=== PATIENT | male | born 1940 | race Caucasian/White ===

== ENCOUNTER 2022-10-27 17:03 | Inpatient (IN) | payer MEDICARE, SELFPAY ==
--- NOTE | ~2022-10-27 | XR_ITS ---
EXAMINATION: XR CHEST CLINICAL INFORMATION: Shortness of breath COMPARISON: None TECHNIQUE: Frontal view of the chest was obtained. FINDINGS: No significant abnormality is noted involving the heart, lungs, mediastinum, bony thorax or soft tissues. XR/XR chest 1V IMPRESSION: Unremarkable examination.
--- NOTE | ~2022-10-27 | US_ITS ---
EXAMINATION: US VENOUS ULTRASOUND WITH DOPPLER LOWER EXTREMITY, BILATERAL CLINICAL INFORMATION: Bilateral pulmonary embolism COMPARISON: None TECHNIQUE: Ultrasound of the deep veins is performed from the hip to the calf with compression sonography and color and pulse Doppler assessment. Spectral analysis with color-flow imaging is performed. FINDINGS: RIGHT: There is normal venous compression and respiratory variation and augmented flow. The visualized common femoral vein, superficial femoral vein, profunda femoral vein, popliteal vein, and the trifurcation region shows no evidence of deep venous thrombosis. There is no significant popliteal fossa cyst. LEFT: Positive for thrombus on the left. [place] to be present in the proximal superficial femoral vein to the level of the popliteal and into the anterior branch of the posterior tibial. US/US venous duplex LE BI IMPRESSION: Positive for DVT in the left lower extremity from the proximal superficial femoral vein through the calf. This critical result was discussed with Dr. Camargo at 3:38 PM on 10/28/2022 and it was ascertained that the content and urgency of the report was understood at the time of direct communication.
--- NOTE | ~2022-10-27 | CT_ITS ---
EXAMINATION: CT ANGIOGRAM OF THE CHEST WITH AND WITHOUT CONTRAST (CT PULMONARY ANGIOGRAM FOR PE) CLINICAL INFORMATION: Reason for Exam tachycardic, hypoxic, EKG PE pattern COMPARISON: None TECHNIQUE: Prior to contrast administration, noncontrast localization images were obtained. Subsequently, multidetector volumetric imaging was performed from the thoracic inlet to below the diaphragms following the administration of 65 mL Omnipaque 350 intravenous contrast. No contrast reaction reported Sagittal, coronal, and MIP oblique sagittal reformatted images were obtained on the CT workstation, uploaded to PACS, and reviewed. This CT examination was performed using dose optimization techniques as appropriate, variously including the following: *Automated exposure control *Adjustment of mA and/or kV according to patient size (this includes techniques or standardized protocols for targeted exams where dose is matched to indication/reason for exam; i.e. extremities or head) *Use of iterative reconstruction technique Total exam dose-length product 250 mGy-cm FINDINGS: QUALITY OF STUDY/CONTRAST BOLUS: Satisfactory. PULMONARY ARTERIES: There are high-grade pulmonary artery embolism with clots identified in maintained and secondary pulmonary arteries of the left upper lobe and lower lobe and the right lower lobe and upper lobe and upper lobe, without evidence of saddle pulmonary emboli. THORACIC AORTA: No aneurysm or dissection. LUNG: No focal consolidation, nodules or masses. PLEURA: No pleural effusion or pneumothorax. MEDIASTINUM: There is large hiatal hernia. No evidence of septal bowing or right heart strain. CORONARY ARTERY CALCIFICATION: None visualized on this study. CHEST WALL/AXILLA: No axillary or internal mammary lymphadenopathy. OSSEOUS STRUCTURES: No acute or suspicious osseous abnormality. UPPER ABDOMEN: Partially visualized upper abdomen revealed exophytic cyst No reflux of contrast into the hepatic veins to suggest elevated right heart pressures. CT/CT angio chest PE protocol IMPRESSION: Bilateral high-grade pulmonary artery embolism VTE: positive This critical result was discussed with Peggy Mclain on 10/27/2022 7:01 PM, and it was ascertained that the content and urgency of the report was understood at the time of direct communication.
[2022-10-27 17:07] VITALS: BP 191/92; PULSE 127; RESP 26; O2SAT 90; BMI 27.4
--- NOTE | 2022-10-27 17:07 | ED_ITS ---
HPI - General Adult General Chief complaint: Dyspnea <NICOLE Rowe - Last Filed: 10/27/22 17:10> Stated complaint: heart racing/ sob <NICOLE Rowe - Last Filed: 10/27/22 17:10> Time Seen by Provider: 10/27/22 17:12 <NICOLE Rowe - Last Filed: 10/27/22 17:10> Related Data Home medications: Home Medications Medication Instructions Recorded Confirmed multivitamin 1 tab PO DAILY 10/27/22 10/27/22 omeprazole magnesium 20 mg 20 mg PO DAILY 10/27/22 10/27/22 tablet,delayed release (Prilosec OTC) <NICOLE Rowe - Last Filed: 10/27/22 17:10> Allergies/adverse reactions: Allergies Allergy/AdvReac Type Severity Reaction Status Date / Time No Known Allergies Allergy Verified 10/27/22 17:07 <NICOLE Rowe - Last Filed: 10/27/22 17:10> [facility] [place] Social History Social History: Social History Smoked in Last 30 Days: No Advance Directives: No Advance Directives Information Provided: Yes <NICOLE Rowe - Last Filed: 10/27/22 17:10> Physical Exam ED Vital Signs: Vital Signs - 24 hr 10/27/22 17:07 10/27/22 18:11 10/27/22 18:13 Pulse Rate 127 H 115 H Respiratory Rate 26 H 20 Blood Pressure 191/92 H 160/83 H Pulse Oximetry 90 L 93 Oxygen Delivery Method Room Air Room Air BMI result Body Mass Index 27.4 <NICOLE Rowe - Last Filed: 10/27/22 17:10> Vital Signs - 24 hr 10/27/22 17:07 10/27/22 18:11 10/27/22 18:13 Pulse Rate 127 H 115 H Respiratory Rate 26 H 20 Blood Pressure 191/92 H 160/83 H Pulse Oximetry 90 L 93 Oxygen Delivery Method Room Air Room Air BMI result Body Mass Index 27.4 <Peggy Mclain MD - Last Filed: 10/27/22 19:27> Course Course Course Narrative: RME--82 yo M with no sig PMHx c/o SOB worse on exertion and palpitations since 10AM. Denies CP, dizziness, N/V Patient tachycardic to 125 & hypoxic 90% on RA after ambulating into triage EKG, labs, CXR, COVID/flu/RSV ordered. Patient will be brought back to main ED <NICOLE Rowe - Last Filed: 10/27/22 17:10> Medications Administered Discontinued Medications Generic Name Dose Route Start Last Admin Trade Name Freq PRN Reason Stop Dose Admin Iohexol 100 ml 10/27/22 18:46 10/27/22 18:47 Iohexol 350 Mg/Ml 100 Ml Infus..Btl IV 10/27/22 18:47 65 ml ONCE ONE Administration <NICOLE Rowe - Last Filed: 10/27/22 17:10> Medications Administered Discontinued Medications Generic Name Dose Route Start Last Admin Trade Name Freq PRN Reason Stop Dose Admin Iohexol 100 ml 10/27/22 18:46 10/27/22 18:47 Iohexol 350 Mg/Ml 100 Ml Infus..Btl IV 10/27/22 18:47 65 ml ONCE ONE Administration <Peggy Mclain MD - Last Filed: 10/27/22 19:27> Medical Decision Making Medical Decision Making MDM Narrative: -patient presented hypoxic, tachycardic, EKG interpreted by me shows sinus tachycardia, heart rate 117, [id number] pattern consistent with pulmonary embolism. Patient's labs are not back yet, I requested to have the CTA done without having labs. -I was present when the patient's CTA of the lungs was done. I saw multiple pulmonary embolisms bilaterally. The radiology report is not back yet. I am starting the patient on Lovenox 1 milligram/kilogram. Also, patient has a left renal cyst, unsure if this could be a primary tumor, as mentioned above the report is pending. Also, patient has classic symptoms of pulmonary embolism such as tachycardia, dizziness and hypoxia -19:04, I spoke with our radiologist on-call, patient does have bilateral PEs, no significant right ventricular strain -patient has an elevated troponin, EKG does not show any ST segment depressions or elevations, ACS not suspected. Elevation likely secondary to the PEs -patient's oxygen saturation drops to 88% on room air with minimal exertion, patient being admitted -I discussed the patient with Dr. Haywood from Internal Medicine <Peggy Mclain MD - Last Filed: 10/27/22 19:27> Differential Diagnosis Differential Diagnoses: The differential diagnosis associated with the presentation includes (PE, pneumonia, CHF) <Peggy Mclain MD - Last Filed: 10/27/22 19:27> Admission/Observation Consideration of admission/observation: Escalation of care including admission/observation considered <Peggy Mclain MD - Last Filed: 10/27/22 19:27> Consult Healthcare Provider Management of the patient was discussed with: Hospitalist <Peggy Mclain MD - Last Filed: 10/27/22 19:27> Lab Data MDM Lab Attestation statement: I reviewed the patient's lab results. <Peggy Mclain MD - Last Filed: 10/27/22 19:27> Result Diagrams: 10/27/22 17:20 10/27/22 17:20 <NICOLE Rowe - Last Filed: 10/27/22 17:10> Labs: Lab Results 10/27/22 10/27/22 10/27/22 Range/Units 17:20 17:20 17:20 WBC 12.3 H (4.8-10.8) X10*3/uL RBC 5.75 (4.60-5.80) X10*6/uL Hgb 17.1 (14.0-18.0) g/dl Hct 50.0 (42.0-52.0) % MCV 87.0 (80.0-98.0) fL MCH 29.7 (27.0-33.0) pg MCHC 34.2 (31.0-36.0) g/dl RDW 12.5 (11.0-16.0) % Plt Count 193 (160-400) X10*3/uL MPV 10.0 (9.4-12.4) fL Immature Gran % (Auto) 0.5 H (0.0-0.4) % Neut % (Auto) 65.5 (45-73) % Lymph % (Auto) 22.0 (20-40) % [place] % (Auto) 8.5 (2-11) % Eos % (Auto) 2.8 (0-4) % Baso % (Auto) 0.7 (0-2) % Lymph # (Auto) 2.7 (1.2-4.9) X10*3/uL [place] # (Auto) 1.0 (0.1-1.2) X10*3/uL Eos # (Auto) 0.3 (0.0-0.4) X10*3/uL Baso # (Auto) 0.1 (0.0-0.2) X10*3/uL Abs Immat Gran (auto) 0.06 H (0.00-0.03) X10*3/uL Absolute Neuts (auto) 8.1 (2.0-8.3) x10*3/uL Absolute Nucleated RBC 0.000 (0.0-0.012) X10*3/uL Nucleated RBC % (auto) 0.0 (0.0-0.2) /100WBC D-Dimer High Sensitivty NG/ML Troponin I High Sens 273.9 H* (<3.5-35.0) ng/L B-Natriuretic Peptide 36 (<100) pg/mL Influenza Type A (PCR) (Negative) Influenza Type B (PCR) (Negative) RSV RNA Qual (PCR) (Negative) SARS-CoV-2 RNA (RT-PCR) (Negative) 10/27/22 10/27/22 Range/Units 17:20 17:20 WBC (4.8-10.8) X10*3/uL RBC (4.60-5.80) X10*6/uL Hgb (14.0-18.0) g/dl Hct (42.0-52.0) % MCV (80.0-98.0) fL MCH (27.0-33.0) pg MCHC (31.0-36.0) g/dl RDW (11.0-16.0) % Plt Count (160-400) X10*3/uL MPV (9.4-12.4) fL Immature Gran % (Auto) (0.0-0.4) % Neut % (Auto) (45-73) % Lymph % (Auto) (20-40) % [place] % (Auto) (2-11) % Eos % (Auto) (0-4) % Baso % (Auto) (0-2) % Lymph # (Auto) (1.2-4.9) X10*3/uL [place] # (Auto) (0.1-1.2) X10*3/uL Eos # (Auto) (0.0-0.4) X10*3/uL Baso # (Auto) (0.0-0.2) X10*3/uL Abs Immat Gran (auto) (0.00-0.03) X10*3/uL Absolute Neuts (auto) (2.0-8.3) x10*3/uL Absolute Nucleated RBC (0.0-0.012) X10*3/uL Nucleated RBC % (auto) (0.0-0.2) /100WBC D-Dimer High Sensitivty 3022 NG/ML Troponin I High Sens (<3.5-35.0) ng/L B-Natriuretic Peptide (<100) pg/mL Influenza Type A (PCR) NEGATIVE (Negative) Influenza Type B (PCR) NEGATIVE (Negative) RSV RNA Qual (PCR) NEGATIVE (Negative) SARS-CoV-2 RNA (RT-PCR) NEGATIVE (Negative) <NICOLE Rowe - Last Filed: 10/27/22 17:10> Lab Results 10/27/22 10/27/22 10/27/22 Range/Units 17:20 17:20 17:20 WBC 12.3 H (4.8-10.8) X10*3/uL RBC 5.75 (4.60-5.80) X10*6/uL Hgb 17.1 (14.0-18.0) g/dl Hct 50.0 (42.0-52.0) % MCV 87.0 (80.0-98.0) fL MCH 29.7 (27.0-33.0) pg MCHC 34.2 (31.0-36.0) g/dl RDW 12.5 (11.0-16.0) % Plt Count 193 (160-400) X10*3/uL MPV 10.0 (9.4-12.4) fL Immature Gran % (Auto) 0.5 H (0.0-0.4) % Neut % (Auto) 65.5 (45-73) % Lymph % (Auto) 22.0 (20-40) % [place] % (Auto) 8.5 (2-11) % Eos % (Auto) 2.8 (0-4) % Baso % (Auto) 0.7 (0-2) % Lymph # (Auto) 2.7 (1.2-4.9) X10*3/uL [place] # (Auto) 1.0 (0.1-1.2) X10*3/uL Eos # (Auto) 0.3 (0.0-0.4) X10*3/uL Baso # (Auto) 0.1 (0.0-0.2) X10*3/uL Abs Immat Gran (auto) 0.06 H (0.00-0.03) X10*3/uL Absolute Neuts (auto) 8.1 (2.0-8.3) x10*3/uL Absolute Nucleated RBC 0.000 (0.0-0.012) X10*3/uL Nucleated RBC % (auto) 0.0 (0.0-0.2) /100WBC D-Dimer High Sensitivty NG/ML Troponin I High Sens 273.9 H* (<3.5-35.0) ng/L B-Natriuretic Peptide 36 (<100) pg/mL Influenza Type A (PCR) (Negative) Influenza Type B (PCR) (Negative) RSV RNA Qual (PCR) (Negative) SARS-CoV-2 RNA (RT-PCR) (Negative) 10/27/22 10/27/22 Range/Units 17:20 17:20 WBC (4.8-10.8) X10*3/uL RBC (4.60-5.80) X10*6/uL Hgb (14.0-18.0) g/dl Hct (42.0-52.0) % MCV (80.0-98.0) fL MCH (27.0-33.0) pg MCHC (31.0-36.0) g/dl RDW (11.0-16.0) % Plt Count (160-400) X10*3/uL MPV (9.4-12.4) fL Immature Gran % (Auto) (0.0-0.4) % Neut % (Auto) (45-73) % Lymph % (Auto) (20-40) % [place] % (Auto) (2-11) % Eos % (Auto) (0-4) % Baso % (Auto) (0-2) % Lymph # (Auto) (1.2-4.9) X10*3/uL [place] # (Auto) (0.1-1.2) X10*3/uL Eos # (Auto) (0.0-0.4) X10*3/uL Baso # (Auto) (0.0-0.2) X10*3/uL Abs Immat Gran (auto) (0.00-0.03) X10*3/uL Absolute Neuts (auto) (2.0-8.3) x10*3/uL Absolute Nucleated RBC (0.0-0.012) X10*3/uL Nucleated RBC % (auto) (0.0-0.2) /100WBC D-Dimer High Sensitivty 3022 NG/ML Troponin I High Sens (<3.5-35.0) ng/L B-Natriuretic Peptide (<100) pg/mL Influenza Type A (PCR) NEGATIVE (Negative) Influenza Type B (PCR) NEGATIVE (Negative) RSV RNA Qual (PCR) NEGATIVE (Negative) SARS-CoV-2 RNA (RT-PCR) NEGATIVE (Negative) <Peggy Mclain MD - Last Filed: 10/27/22 19:27> Independent Interpretation I performed an independent interpretation of an: CT Scan (My interpretation of CTA for pulmonary embolism: Positive for PE) <Peggy Mclain MD - Last Filed: 10/27/22 19:27> Radiology Impression Discussion of test interpretation with radiology: I discussed test interpretation with the radiologist <Peggy Mclain MD - Last Filed: 10/27/22 19:27> Radiologist Impression: QUALITY OF STUDY/CONTRAST BOLUS: Satisfactory. PULMONARY ARTERIES: There are high-grade pulmonary artery embolism with clots identified in maintained and secondary pulmonary arteries of the left upper lobe and lower lobe and the right lower lobe and upper lobe and upper lobe, without evidence of saddle pulmonary emboli. THORACIC AORTA: No aneurysm or dissection. LUNG: No focal consolidation, nodules or masses. PLEURA: No pleural effusion or pneumothorax. MEDIASTINUM: There is large hiatal hernia.? No evidence of septal bowing or right heart strain. CORONARY ARTERY CALCIFICATION: None visualized on this study. CHEST WALL/AXILLA: No axillary or internal mammary lymphadenopathy. OSSEOUS STRUCTURES: No acute or suspicious osseous abnormality.? UPPER ABDOMEN: Partially visualized upper abdomen revealed exophytic cyst? No reflux of contrast into the hepatic veins to suggest elevated right heart pressures. CT/CT angio chest PE protocol IMPRESSION: Bilateral high-grade pulmonary artery embolism VTE: positive <Peggy Mclain MD - Last Filed: 10/27/22 19:27> Critical Care Time Critical Care Time Critical Care Time: Yes <Peggy Mclain MD - Last Filed: 10/27/22 19:27> Total Critical Care Time: 60 <Peggy Mclain MD - Last Filed: 10/27/22 19:27> Attestation: I have personally provided critical care time. Time includes review of lab data, radiology results, discussion with consultants, and monitoring for potential decompensation. Intervention performed as documented. <Peggy Mclain MD - Last Filed: 10/27/22 19:27> Discharge Plan Discharge Clinical Impression: Pulmonary embolism <NICOLE Rowe - Last Filed: 10/27/22 17:10> Patient Disposition: Admitted As Inpatient <NICOLE Rowe - Last Filed: 10/27/22 17:10>
--- NOTE | 2022-10-27 17:07 | ECG_ITS ---
Test Reason : CP Blood Pressure : / mmHG Vent. Rate : 117 BPM Atrial Rate : 117 BPM P-R Int : 160 ms QRS Dur : 088 ms QT Int : 306 ms P-R-T Axes : 069 009 003 degrees QTc Int : 426 ms Sinus tachycardia Cannot rule out Inferior infarct , age undetermined Abnormal ECG No previous ECGs available Referred By: Delmi Sapp Electronically Signed By:PAULA OLSON MD
--- NOTE | 2022-10-27 17:20 | ED.GENADULT ---
HPI - General Adult General Chief complaint: Dyspnea Stated complaint: heart racing/ sob Time Seen by Provider: 10/27/22 17:12 Source: patient Mode of arrival: ambulatory Limitations: no limitations History of Present Illness HPI narrative: Patient comes to the emergency room complaining of palpitations and shortness of breath that started suddenly 5 hours ago. Patient states he has no cardiac or pulmonary history. Patient states Related Data Home Medications Medication Instructions Recorded Confirmed multivitamin 1 tab PO DAILY 10/27/22 10/27/22 omeprazole magnesium 20 mg 20 mg PO DAILY 10/27/22 10/27/22 tablet,delayed release (Prilosec OTC) Allergies Allergy/AdvReac Type Severity Reaction Status Date / Time No Known Allergies Allergy Verified 10/27/22 17:07 [facility] Past Medical History Medical History GERD (gastroesophageal reflux disease) Social History Social History Smoked in Last 30 Days: No Advance Directives: No Advance Directives Information Provided: Yes Physical Exam ED Vital Signs: Vital Signs - 24 hr 10/27/22 17:07 10/27/22 18:11 10/27/22 18:13 Pulse Rate 127 H 115 H Respiratory Rate 26 H 20 Blood Pressure 191/92 H 160/83 H Pulse Oximetry 90 L 93 Oxygen Delivery Method Room Air Room Air BMI result Body Mass Index 27.4 Medications Administered Discontinued Medications Generic Name Dose Route Start Last Admin Trade Name Freq PRN Reason Stop Dose Admin Iohexol 100 ml 10/27/22 18:46 10/27/22 18:47 Iohexol 350 Mg/Ml 100 Ml Infus..Btl IV 10/27/22 18:47 65 ml ONCE ONE Administration Medical Decision Making Lab Data 10/27/22 17:20 10/27/22 17:20 Labs: Lab Results 10/27/22 10/27/22 10/27/22 Range/Units 17:20 17:20 17:20 WBC 12.3 H (4.8-10.8) X10*3/uL RBC 5.75 (4.60-5.80) X10*6/uL Hgb 17.1 (14.0-18.0) g/dl Hct 50.0 (42.0-52.0) % MCV 87.0 (80.0-98.0) fL MCH 29.7 (27.0-33.0) pg MCHC 34.2 (31.0-36.0) g/dl RDW 12.5 (11.0-16.0) % Plt Count 193 (160-400) X10*3/uL MPV 10.0 (9.4-12.4) fL Immature Gran % (Auto) 0.5 H (0.0-0.4) % Neut % (Auto) 65.5 (45-73) % Lymph % (Auto) 22.0 (20-40) % [place] % (Auto) 8.5 (2-11) % Eos % (Auto) 2.8 (0-4) % Baso % (Auto) 0.7 (0-2) % Lymph # (Auto) 2.7 (1.2-4.9) X10*3/uL [place] # (Auto) 1.0 (0.1-1.2) X10*3/uL Eos # (Auto) 0.3 (0.0-0.4) X10*3/uL Baso # (Auto) 0.1 (0.0-0.2) X10*3/uL Abs Immat Gran (auto) 0.06 H (0.00-0.03) X10*3/uL Absolute Neuts (auto) 8.1 (2.0-8.3) x10*3/uL Absolute Nucleated RBC 0.000 (0.0-0.012) X10*3/uL Nucleated RBC % (auto) 0.0 (0.0-0.2) /100WBC D-Dimer High Sensitivty NG/ML Troponin I High Sens 273.9 H* (<3.5-35.0) ng/L B-Natriuretic Peptide 36 (<100) pg/mL Influenza Type A (PCR) (Negative) Influenza Type B (PCR) (Negative) RSV RNA Qual (PCR) (Negative) SARS-CoV-2 RNA (RT-PCR) (Negative) 10/27/22 10/27/22 Range/Units 17:20 17:20 WBC (4.8-10.8) X10*3/uL RBC (4.60-5.80) X10*6/uL Hgb (14.0-18.0) g/dl Hct (42.0-52.0) % MCV (80.0-98.0) fL MCH (27.0-33.0) pg MCHC (31.0-36.0) g/dl RDW (11.0-16.0) % Plt Count (160-400) X10*3/uL MPV (9.4-12.4) fL Immature Gran % (Auto) (0.0-0.4) % Neut % (Auto) (45-73) % Lymph % (Auto) (20-40) % [place] % (Auto) (2-11) % Eos % (Auto) (0-4) % Baso % (Auto) (0-2) % Lymph # (Auto) (1.2-4.9) X10*3/uL [place] # (Auto) (0.1-1.2) X10*3/uL Eos # (Auto) (0.0-0.4) X10*3/uL Baso # (Auto) (0.0-0.2) X10*3/uL Abs Immat Gran (auto) (0.00-0.03) X10*3/uL Absolute Neuts (auto) (2.0-8.3) x10*3/uL Absolute Nucleated RBC (0.0-0.012) X10*3/uL Nucleated RBC % (auto) (0.0-0.2) /100WBC D-Dimer High Sensitivty 3022 NG/ML Troponin I High Sens (<3.5-35.0) ng/L B-Natriuretic Peptide (<100) pg/mL Influenza Type A (PCR) NEGATIVE (Negative) Influenza Type B (PCR) NEGATIVE (Negative) RSV RNA Qual (PCR) NEGATIVE (Negative) SARS-CoV-2 RNA (RT-PCR) NEGATIVE (Negative) Discharge Plan Discharge Clinical Impression: Pulmonary embolism Patient Disposition: Admitted As Inpatient
[2022-10-27 17:30] LABS: MANUAL DIFF FLAG NO
[2022-10-27 17:32] LABS: Basophils Absolute Auto 0.1 X10*3/uL (0.0-0.2); Basophils Percent Auto 0.7 % (0-2); Eosinophils Absolute Auto 0.3 X10*3/uL (0.0-0.4); Eosinophils Percent Auto 2.8 % (0-4); Hemoglobin 17.1 g/dl (14.0-18.0); Imm Gran Abs Auto 0.06 X10*3/uL (0.00-0.03); Imm Gran Pct Auto 0.5 % (0.0-0.4); Lymphocytes Absolute Auto 2.7 X10*3/uL (1.2-4.9); Mean Corpuscular HGB Conc 34.2 g/dl (31.0-36.0); Mean Corpuscular Hemoglobin 29.7 pg (27.0-33.0); Monocytes Percent Auto 8.5 % (2-11); Neutrophils Absolute Auto 8.1 x10*3/uL (2.0-8.3); Neutrophils Percent Auto 65.5 % (45-73); Platelet Count 193 X10*3/uL (160-400); Red Blood Count 5.75 X10*6/uL (4.60-5.80); Red Cell Distribution Width 12.5 % (11.0-16.0); White Blood Count 12.3 X10*3/uL (4.8-10.8)
[2022-10-27 17:42] LABS: D Dimer High Sensitivity 3022 NG/ML
[2022-10-27 17:50] LABS: B Type Natriuretic Peptide 36 pg/mL (<100)
[2022-10-27 18:04] LABS: Troponin-I High Sensitivity 273.9 ng/L (<3.5-35.0)
[2022-10-27 18:06] LABS: TSH reflex Free T4 4.01 uIU/mL (0.32-4.0)
[2022-10-27 18:11] VITALS: PULSE 115; RESP 20; O2SAT 93
[2022-10-27 18:12] LABS: Influenza A PCR NEGATIVE (Negative); Influenza B PCR NEGATIVE (Negative); Resp Syncy Virus RNA Qual PCR NEGATIVE (Negative); SARS COV2 PCR INHOUSE NEGATIVE (Negative)
[2022-10-27 18:13] VITALS: BP 160/83
--- NOTE | 2022-10-27 18:21 | PC.NURSE ---
Alert and oriented, resp even and unlabored. Shortness of breath since this morning, IV established sinus tach on monitor
[2022-10-27] MEDS: iohexoL 350 MG/ML 100 ML INFUS..BTL IV (18:47)
--- NOTE | 2022-10-27 19:03 | PHA.MEDREC ---
Pharmacy Consult ? Medication Reconciliation Pharmacy has completed the medication reconciliation.
--- NOTE | 2022-10-27 19:08 | PM.IMHP ---
History of Present Illness Date of Service: 10/27/22 Chief Complaint: Dyspnea this is a 82-year-old male with pertinent history of gastroesophageal reflux disease who presents to the emergency department for evaluation of tachypnea and tachycardia. patient states he had sudden onset of dyspnea which he had never experienced before. It was worse with exertion. Also noticed tachycardia. Denies chest discomfort. No history of blood clots in the past. No history of hypercoagulability in family. No recent travels. Patient is ambulatory at baseline. No history of cancer. He denies fever, chills, cough, abdominal pain, changes in urinary or bowel habits. In the emergency department, patient was found to have bilateral pulmonary emboli Review of Systems Constitutional: Constitutional: Reports no additional constitutional complaints Cardiovascular: Cardiovascular: Reports rapid heart rate and Reports dyspnea on exertion Respiratory: Respiratory: Reports dyspnea on exertion Gastrointestinal: Gastrointestinal: Reports no additional gastrointestinal complaints Genitourinary: Genitourinary: Reports no additional male genitourinary complaints [facility]LY [facility] Medical History GERD (gastroesophageal reflux disease) Functional capacity: independent ambulation Pertinent family history: not significant due to age. No family history of hypercoagulation Social History Smoked in Last 30 Days: No Advance Directives: No Advance Directives Information Provided: Yes Meds Allergies Allergy/AdvReac Type Severity Reaction Status Date / Time No Known Allergies Allergy Verified 10/27/22 17:07 Active Medications: Current Medications Pharmacy Consult (Consult Rx Perform Med Rec) 1 each MISCELLANE ONCE PRN PRN Reason: Consult order Home Medications Medication Instructions Recorded Confirmed Last Taken Type multivitamin 1 tab PO DAILY 10/27/22 10/27/22 10/27/22 History omeprazole magnesium 20 mg 20 mg PO DAILY 10/27/22 10/27/22 10/27/22 History tablet,delayed release (Prilosec OTC) Physical Exam Vital Signs and Narrative: Vital Signs: Last Vital Signs Pulse 115 H 10/27/22 18:11 Resp 20 10/27/22 18:11 BP 160/83 H 10/27/22 18:13 Pulse Ox 93 10/27/22 18:11 O2 Del Method 10/27/22 18:11 BMI result Body Mass Index 27.4 Elderly male lying in bed in no distress Neck supple, no JVD Tachycardic with regular rhythm, S1-S2 heard Regular breath sounds bilaterally, no wheezing or crackles appreciated Abdomen soft nontender, no guarding, no rigidity Patient is awake, alert and oriented to self, place, time and person ; no focal motor deficit Psych: Normal mood No pedal edema Results Labs 10/27/22 17:20 10/27/22 17:20 Labs: Laboratory Results - last 24 hr 10/27/22 10/27/22 10/27/22 17:20 17:20 17:20 MCV 87.0 MCH 29.7 MCHC 34.2 RDW 12.5 Plt Count 193 MPV 10.0 Immature Gran % (Auto) 0.5 H Neut % (Auto) 65.5 Lymph % (Auto) 22.0 [place] % (Auto) 8.5 Eos % (Auto) 2.8 Baso % (Auto) 0.7 Lymph # (Auto) 2.7 [place] # (Auto) 1.0 Eos # (Auto) 0.3 Baso # (Auto) 0.1 Abs Immat Gran (auto) 0.06 H Absolute Neuts (auto) 8.1 Absolute Nucleated RBC 0.000 Nucleated RBC % (auto) 0.0 D-Dimer High Sensitivty Troponin I High Sens 273.9 H* B-Natriuretic Peptide 36 Influenza Type A (PCR) Influenza Type B (PCR) RSV RNA Qual (PCR) SARS-CoV-2 RNA (RT-PCR) 10/27/22 10/27/22 17:20 17:20 MCV MCH MCHC RDW Plt Count MPV Immature Gran % (Auto) Neut % (Auto) Lymph % (Auto) [place] % (Auto) Eos % (Auto) Baso % (Auto) Lymph # (Auto) [place] # (Auto) Eos # (Auto) Baso # (Auto) Abs Immat Gran (auto) Absolute Neuts (auto) Absolute Nucleated RBC Nucleated RBC % (auto) D-Dimer High Sensitivty 3022 Troponin I High Sens B-Natriuretic Peptide Influenza Type A (PCR) NEGATIVE Influenza Type B (PCR) NEGATIVE RSV RNA Qual (PCR) NEGATIVE SARS-CoV-2 RNA (RT-PCR) NEGATIVE Imaging Radiologist's Impressions: Impressions Chest X-Ray 10/27/22 18:15 IMPRESSION: Unremarkable examination. Assessment and Plan (1) Pulmonary embolism: Status: Acute Plan this is a 82-year-old male with pertinent history of gastroesophageal reflux disease who presents to the emergency department for evaluation of tachypnea and tachycardia. #. Acute respiratory distress and ambulatory hypoxemia due to #. Acute submassive PE: Unclear etiology. Initiating therapeutic Lovenox. Transition to p.o. anticoagulants prior to discharge. May benefit from coagulation workup as an outpatient. BMP pending #. Elevated troponin: Type 2 in the setting of increased demand #. reactive leukocytosis #. gastroesophageal reflux disease: On PPI DVT prophylaxis: Therapeutic Lovenox Regular diet Full code Admit as inpatient and will require two night minimum hospital stay for close monitoring of hemodynamics Time Spent With Patient Time: Total time managing care of this patient today ____ minutes. Quality Stroke Does the patient have a stroke diagnosis?: No VTE Prior VTE?: No VTE Risk Level:: Medical - moderate - high VTE Device Contraindication: Treatment Not Indicated VTE Drug Contraindication: N/A - Med Ordered
[2022-10-27 19:55] VITALS: BP 177/93; PULSE 111; RESP 17; TEMP 36.3; O2SAT 94
[2022-10-27 22:45] LABS: Alanine Aminotransferase 19 U/L (0-40); Albumin Level 3.9 g/dL (3.5-5.0); Alkaline Phosphatase 103 U/L (39-117); Anion Gap 13 (12-20); Aspartate Amino Transferase 23 U/L (5-37); Bilirubin Direct < 0.2 mg/dL (0.0-0.5); Bilirubin Total 0.6 mg/dL (0.0-1.0); Blood Urea Nitrogen 18 mg/dL (9-16); Calcium 9.3 mg/dL (8.4-10.2); Carbon Dioxide 25 mmol/L (22-29); Chloride 106 mmol/L (96-108); Creatinine Clr Calc Pharmacy 40.6; Estimated Glomerular Filt Rate 53; Glucose Random 215 mg/dL (60-115); Magnesium 2.2 mg/dL (1.6-2.6); Potassium 4.8 mmol/L (3.3-5.1); Sodium 139 mmol/L (135-145); Total Protein 6.6 g/dL (6.5-8.0)
[2022-10-27 22:53] LABS: Troponin-I High Sensitivity 850.9 ng/L (<3.5-35.0)
--- NOTE | 2022-10-27 22:56 | PC.NURSE ---
lovenox given by prior RN, per [facility] RN is still in chart so unable to amend medication as given, witnessed medication administration at 1915.
[2022-10-27 23:22] LABS: Free T4 (Free Thyroxine) 0.84 ng/dL (0.71-1.85)
[2022-10-27] MEDS: Melatonin 3 MG TABLET 6 MG PO (23:41)
[2022-10-27] MEDS: 0.9 % Sodium Chloride Flush 3 ML SYRINGE IVFLUSH (23:43)
[2022-10-27 23:51] VITALS: BP 189/78; PULSE 102; RESP 17; TEMP 36.9; O2SAT 96
--- NOTE | 2022-10-27 23:53 | PC.NURSE ---
I took ovver care of the pt at 2300. Pt is resting comfortably in bed, requesting something to sleep and an antacid. MD contacted and medications ordered. Pt then stated that he wants to wait to take his maalox until he starts to get pain. At this time, pt has no complaints.
[2022-10-28] MEDS: Enoxaparin Sodium 80 MG/0.8 ML SYRINGE 70 MG SUBCUT ×4 (01:12→21:09)
[2022-10-28 04:35] VITALS: BP 136/62; PULSE 94; RESP 20; TEMP 37; O2SAT 92
[2022-10-28 05:34] LABS: Estimated Average Glucose 154 mg/dL
[2022-10-28] MEDS: Omeprazole 20 MG CAPSULE.DR PO (06:28)
--- NOTE | 2022-10-28 07:00 | CA_ITS ---
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 elevated troponin Study Quality: Fair ECG Rhythm: Sinus Conclusions: - 1. Normal LV systolic function with mild LVH 2. Dilated right ventricle with hypokinesis of the free wall suggestive acute cor pulmonale 3. Upper limits of RV systolic pressure 4. Normal cardiac valvular Doppler 5. No gross pericardial effusion Findings Left Ventricle Normal left ventricular size and systolic function. There is mildly increased left ventricular wall thickness. The visually estimated ejection fraction is between 60-65%. Regional wall motion abnormalities can not be excluded due to suboptimal endocardial definition. Diastolic function is indeterminate on the basis of available data. There is mild septal asymmetric hypertrophy. Right Ventricle Moderately increased right ventricular cavity size. There is moderately decreased right ventricular systolic function. Atria The left atrium is normal in size. Interatrial shunt cannot be excluded. The right atrium was not well visualized. Aortic Valve The aortic valve structure and function is likely normal. There is no aortic valve stenosis. There is no aortic valve regurgitation. Mitral Valve There is mild anterior and posterior mitral leaflet thickening. There is trace mitral valve regurgitation. There is no mitral valve stenosis. Pulmonic Valve The pulmonic valve was not well visualized. Tricuspid Valve Likely normal tricuspid valve structure and function. Normal right atrial pressure. Great Vessels All visible segments of the aorta are normal in size. The pulmonary artery was not well visualized. Venous The inferior vena cava is normal in size and collapses greater than 50% with inspiration. Pericardium/Pleural There is no evidence of pericardial effusion. Prior Study Comparison No prior study available for comparison. Measurements 2D Linear Measurements IVSd: 1.33 0.6-0.9/0.6-1.0 cm LVIDd: 3.50 3.9-5.3/4.2-5.9 cm LVIDd Index: 1.97 2.4-3.2/2.2-3.1 cm/m2 LVIDs: 1.48 2.0-3.6 cm LVPWd: 1.03 0.7-1.1 cm LA Diam: 2.50 2.7-3.8/3.0-4.0 cm LAIDs Index: 1.40 1.5-2.3 cm/m2 LV Mass: 164.69 67-162/88-224 g LV Mass Index: 92.52 43-95/49-115 g/m2 LVOT Diam: 2.00 3.0+(-)1.3 cm Mitral Valve E'Lateral: 4.68 E'Medial: 5.11 Aortic Valve AoV Pk Manuel: 1.08 AoV Mn Manuel: 0.79 AoV VTI: 0.19 AoV Pk Grad: 5.00 Aov Mn Grad: 3.00 SHERYL Cont.VTI: 2.36 LVOT LVOT Pk Manuel: 0.87 LVOT Mn Manuel: 0.64 LVOT VTI: 0.15 LVOT Pk Grad: 3.00 LVOT Mn Grad: 2.00 LVOT Diam: 2.00 LVOT Area: 3.14 Diastolic Function E'Medial: 5.11 E' Laterial: 4.68 Right Ventricle TAPSE (mm): 14.00 TVS' Manuel: 12.00 Tricuspid Valve TR Pk Manuel: 2.97 TR Pk Grad: 35.00 RA Press: 3.00 RVSP: 38.00 Great Vessels Aorta Ao Asc: 3.50 2.1-3.4 cm Updated in Other Vendor System with Status of Final Otilio Sol MD electronically signed on 10/28/2022 3:08:12 PM with status of Final
--- NOTE | 2022-10-28 07:03 | PC.NURSE ---
assumed care of patient, patient resting comfortably in bed, VSS, awaiting inpt bed
[2022-10-28 07:16] LABS: MANUAL DIFF FLAG NO
[2022-10-28 07:25] LABS: Basophils Absolute Auto 0.1 X10*3/uL (0.0-0.2); Eosinophils Absolute Auto 0.6 X10*3/uL (0.0-0.4); Eosinophils Percent Auto 4.3 % (0-4); Hematocrit 49.4 % (42.0-52.0); Hemoglobin 16.9 g/dl (14.0-18.0); Imm Gran Abs Auto 0.06 X10*3/uL (0.00-0.03); Imm Gran Pct Auto 0.5 % (0.0-0.4); Lymphocytes Absolute Auto 4.7 X10*3/uL (1.2-4.9); Lymphocytes Percent Auto 36.5 % (20-40); Mean Corpuscular HGB Conc 34.2 g/dl (31.0-36.0); Mean Corpuscular Hemoglobin 29.5 pg (27.0-33.0); Mean Corpuscular Volume 86.4 fL (80.0-98.0); Monocytes Absolute Auto 1.3 X10*3/uL (0.1-1.2); Monocytes Percent Auto 10.3 % (2-11); Neutrophils Absolute Auto 6.1 x10*3/uL (2.0-8.3); Neutrophils Percent Auto 47.4 % (45-73); Platelet Count 207 X10*3/uL (160-400); Red Blood Count 5.72 X10*6/uL (4.60-5.80); Red Cell Distribution Width 12.7 % (11.0-16.0); White Blood Count 12.8 X10*3/uL (4.8-10.8)
[2022-10-28 07:34] LABS: Anion Gap 14 (12-20); Blood Urea Nitrogen 17 mg/dL (9-16); Calcium 9.3 mg/dL (8.4-10.2); Carbon Dioxide 26 mmol/L (22-29); Chloride 106 mmol/L (96-108); Creatinine Clr Calc Pharmacy 42.6; Estimated Glomerular Filt Rate 56; Glucose Random 153 mg/dL (60-115); Potassium 4.6 mmol/L (3.3-5.1); Sodium 141 mmol/L (135-145)
[2022-10-28] MEDS: Multivitamin TABLET 1 TAB PO (07:51)
[2022-10-28 08:23] VITALS: BP 137/69; PULSE 95; RESP 20; TEMP 36.7; O2SAT 92
--- NOTE | 2022-10-28 09:42 | MHC.CM.PN ---
PT REPORTS HE LIVES ALONE AND IS INDEPENDENT WITH CARE HE DENIES USE OF DME OR HOME SERVICES PT REPORTS HE IS COVID VACCINATED HE REPORTS HE HAS A HCP, HOWEVER IS UNSURE WHERE, HE DECLINES CM OFFER TO ASSIST IN COMPLETION OF A NEW ONE. PT REPORTS HE DOES NOT HAVE A PCP, HE SAYS HE WAS WITH [facility] UNTIL 3-4 YEARS AGO, BUT HAS NOT FOUND A NEW ONE SINCE THE DOCTOR MOVED HIS PRACTICE. HE IS INTERESTED IN SEEING A PROVIDER AT [facility] [place], [place] ON THE [facility] TASK SENT TO CM OFFICE IMM DELIVERED CURRENT DC PLAN IS HOME WITH NO SERVICES PTS BROTHER TO TRANSPORT
--- NOTE | 2022-10-28 11:26 | P.PNIM_ITS ---
Subjective Subjective Date of Service: 10/28/22 Interval History: being followed for bilateral PE patient denies chest pain, denies palpitations, denies prolonged car ride, no recent travel has been ambulatory denies leg trauma and no prior history of DVT. denies chest pain, no prior history of coronary artery disease. Review of Systems Review of Systems: Yes all other systems are reviewed and are negative Physical Exam Vital Signs: Vital Signs: Last Vital Signs Temp 98.1 F 10/28/22 08:23 Pulse 95 10/28/22 08:23 Resp 20 10/28/22 08:23 BP 137/69 10/28/22 08:23 Pulse Ox 92 10/28/22 08:23 O2 Del Method 10/28/22 08:23 BMI result Body Mass Index 27.4 Const: Other: General resting comfortably, in no acute distress. Neck supple, no JVD. CVS regular rate rhythm, Respiratory lungs clear to auscultation, no respiratory distress, no wheeze, no rhonchi. Gastrointestinal abdomen soft, nontender, bowel sounds audible, no guarding , no rigidity. Extremities no edema. Neuro nonfocal , speech clear. Skin no rash Objective Data Active Medications Acetaminophen (Acetaminophen 325 Mg Tablet) 650 mg PO Q6H PRN PRN Reason: Pain, Mild (Pain Scale 1-3) Enoxaparin Sodium (Enoxaparin Sodium 80 Mg/0.8 Ml Syringe) 70 mg 1 mg/kg (70 mg) SUBCUT BID [facility] Last Admin: 10/28/22 07:50 Dose: 70 mg Documented By: LINH Melatonin (Melatonin 3 Mg Tablet) 6 mg PO BEDTIME PRN PRN Reason: Insomnia Last Admin: 10/27/22 23:41 Dose: 6 mg Documented By: BECKY Multivitamins/Vitamin C (Multivitamin Tablet) 1 tab PO DAILY [facility] Last Admin: 10/28/22 07:51 Dose: 1 tab Documented By: LINH Omeprazole (Omeprazole 20 Mg Capsule.) 20 mg PO DAILY@0600 [facility] Last Admin: 10/28/22 06:28 Dose: 20 mg Documented By: BECKY Ondansetron HCl (Ondansetron Hcl 4 Mg/2 Ml Vial) 4 mg IVPUSH Q8H PRN PRN Reason: Nausea and Vomiting Pharmacy Consult (Consult Rx Perform Med Rec) 1 each MISCELLANE ONCE PRN PRN Reason: Consult order Sodium Chloride (0.9 % Sodium Chloride Flush 3 Ml Syringe) 3 ml IVFLUSH QSHIFT [facility] Last Admin: 10/28/22 07:50 Dose: Not Given Documented By: LINH Non-Admin Reason: IV Running Labs 10/28/22 06:55 10/28/22 06:55 Labs: Laboratory Results - last 24 hr 10/27/22 10/27/22 10/27/22 17:20 17:20 17:20 MCV 87.0 MCH 29.7 MCHC 34.2 RDW 12.5 Plt Count 193 MPV 10.0 Immature Gran % (Auto) 0.5 H Neut % (Auto) 65.5 Lymph % (Auto) 22.0 [place] % (Auto) 8.5 Eos % (Auto) 2.8 Baso % (Auto) 0.7 Lymph # (Auto) 2.7 [place] # (Auto) 1.0 Eos # (Auto) 0.3 Baso # (Auto) 0.1 Abs Immat Gran (auto) 0.06 H Absolute Neuts (auto) 8.1 Absolute Nucleated RBC 0.000 Nucleated RBC % (auto) 0.0 D-Dimer High Sensitivty Anion Gap Estim Creat Clear Calc Estimated GFR Random Glucose Estimat Average Glucose Hemoglobin A1c % Calcium Magnesium Total Bilirubin Direct Bilirubin AST ALT Alkaline Phosphatase Troponin I High Sens 273.9 H* B-Natriuretic Peptide 36 Total Protein Albumin TSH Free T4 Influenza Type A (PCR) Influenza Type B (PCR) RSV RNA Qual (PCR) SARS-CoV-2 RNA (RT-PCR) 10/27/22 10/27/22 10/27/22 17:20 17:20 17:20 MCV MCH MCHC RDW Plt Count MPV Immature Gran % (Auto) Neut % (Auto) Lymph % (Auto) [place] % (Auto) Eos % (Auto) Baso % (Auto) Lymph # (Auto) [place] # (Auto) Eos # (Auto) Baso # (Auto) Abs Immat Gran (auto) Absolute Neuts (auto) Absolute Nucleated RBC Nucleated RBC % (auto) D-Dimer High Sensitivty 3022 Anion Gap Estim Creat Clear Calc Estimated GFR Random Glucose Estimat Average Glucose 154 Hemoglobin A1c % 7.0 Calcium Magnesium Total Bilirubin Direct Bilirubin AST ALT Alkaline Phosphatase Troponin I High Sens B-Natriuretic Peptide Total Protein Albumin TSH Free T4 Influenza Type A (PCR) NEGATIVE Influenza Type B (PCR) NEGATIVE RSV RNA Qual (PCR) NEGATIVE SARS-CoV-2 RNA (RT-PCR) NEGATIVE 10/27/22 10/27/22 10/28/22 21:54 21:54 06:55 MCV 86.4 MCH 29.5 MCHC 34.2 RDW 12.7 Plt Count 207 MPV 10.0 Immature Gran % (Auto) 0.5 H Neut % (Auto) 47.4 Lymph % (Auto) 36.5 [place] % (Auto) 10.3 Eos % (Auto) 4.3 H Baso % (Auto) 1.0 Lymph # (Auto) 4.7 [place] # (Auto) 1.3 H Eos # (Auto) 0.6 H Baso # (Auto) 0.1 Abs Immat Gran (auto) 0.06 H Absolute Neuts (auto) 6.1 Absolute Nucleated RBC 0.000 Nucleated RBC % (auto) 0.0 D-Dimer High Sensitivty Anion Gap 13 Estim Creat Clear Calc 40.6 Estimated GFR 53 Random Glucose 215 H Estimat Average Glucose Hemoglobin A1c % Calcium 9.3 Magnesium 2.2 Total Bilirubin 0.6 Direct Bilirubin < 0.2 AST 23 ALT 19 Alkaline Phosphatase 103 Troponin I High Sens 850.9 H* D B-Natriuretic Peptide Total Protein 6.6 Albumin 3.9 TSH 4.01 H Free T4 0.84 Influenza Type A (PCR) Influenza Type B (PCR) RSV RNA Qual (PCR) SARS-CoV-2 RNA (RT-PCR) 10/28/22 06:55 MCV MCH MCHC RDW Plt Count MPV Immature Gran % (Auto) Neut % (Auto) Lymph % (Auto) [place] % (Auto) Eos % (Auto) Baso % (Auto) Lymph # (Auto) [place] # (Auto) Eos # (Auto) Baso # (Auto) Abs Immat Gran (auto) Absolute Neuts (auto) Absolute Nucleated RBC Nucleated RBC % (auto) D-Dimer High Sensitivty Anion Gap 14 Estim Creat Clear Calc 42.6 Estimated GFR 56 Random Glucose 153 H Estimat Average Glucose Hemoglobin A1c % Calcium 9.3 Magnesium Total Bilirubin Direct Bilirubin AST ALT Alkaline Phosphatase Troponin I High Sens B-Natriuretic Peptide Total Protein Albumin TSH Free T4 Influenza Type A (PCR) Influenza Type B (PCR) RSV RNA Qual (PCR) SARS-CoV-2 RNA (RT-PCR) Assessment and Plan (1) Pulmonary embolism: Status: Acute (2) GERD (gastroesophageal reflux disease): Status: Acute (3) Hypoxia: Status: Acute Plan 82-year-old male with pertinent history of gastroesophageal reflux disease presents to the emergency department for evaluation of tachypnea and tachycardia. #.? Acute respiratory distress and ambulatory hypoxemia due to Acute submassive PE: Unclear etiology, no history of recent travel, no leg trauma. continue therapeutic Lovenox per transition to p.o. anticoagulants prior to discharge.? will obtain Doppler study lower extremity, follow echo for right heart strain coagulation workup as an outpatient.? #. Elevated troponin:? Type 2 in the setting of increased demand, EKG showed no ischemic change, echo obtained report pending #. reactive leukocytosis #. gastroesophageal reflux disease:? cont. Prilosec DVT prophylaxis: Therapeutic Lovenox Full code patient will need continued inpatient hospitalization? for treatment and workup for acute PE for close monitoring of hemodynamics Time Spent With Patient Time: Total time managing care of this patient today ____ minutes. Quality Stroke Does the patient have a stroke diagnosis?: No VTE Prior VTE?: No VTE Risk Level:: Medical - moderate - high VTE Device Contraindication: Treatment Not Indicated VTE Drug Contraindication: N/A - Med Ordered
[2022-10-28] MEDS: 0.9 % Sodium Chloride Flush 3 ML SYRINGE IVFLUSH (12:51)
[2022-10-28 15:04] VITALS: BP 126/78; PULSE 88; RESP 22; TEMP 36.6; O2SAT 94
[2022-10-28 15:56] VITALS: BP 198/85; PULSE 106; RESP 16; TEMP 36.6; O2SAT 96
--- NOTE | 2022-10-28 17:07 | P.CONPL_ITS ---
History of Present Illness History of Present Illness Consult date: 10/28/22 Chief complaint: Dyspnea Narrative: I have seen this 82 years old very pleasant gentleman for pulmonary consulta tion. He came to the emergency room because for the past few days he was experiencing shortness of breath on walking up and down stairs, and even on the level ground. He never had this problem before. He did have pain and discomfort in the left lower extremity for a few days prior to the onset of the symptoms. However he had no injury to the leg and he was not confined to the bed or chair. His past medical history is tension negative for any pulmonary problems or cardiac issues. He denies having had any venous problem in the legs. His main issue is ongoing gastroesophageal reflux which is being treated with omeprazole 20 mg daily. CTA of the chest, turned out to be positive for multiple pulmonary emboli on both sides. And venous duplex study of the lower extremities is positive for DVT in left lower extremity, that being the primary cause of his pulmonary embolism. This 82 years old gentleman has been relatively in good health, and does not seem to have any significant risk factors for DVT or pulmonary embolism. Currently he is relatively comfortable he can walk to the bathroom without much shortness of breath, He denies, any chest pain He is not requiring oxygen. He is receiving therapeutic dose of Lovenox. Review of Systems Review of Systems: Yes all other systems are reviewed and are negative PMFSH Past Medical History Medical History (Updated 10/29/22 @ 13:09 by Ashwini Teran MD) DVT (deep venous thrombosis) GERD (gastroesophageal reflux disease) Venous thromboembolism (VTE) Functional capacity: independent ambulation Social History Social History Household Members: None Housing: House Do you presently have visiting nurse or other home services: No Patient Tobacco Use Status: Never used Tobacco service: Yes Current occupational status: retired Meds Allergies Allergy/AdvReac Type Severity Reaction Status Date / Time No Known Allergies Allergy Verified 10/27/22 17:07 Active Medications: Current Medications Acetaminophen (Acetaminophen 325 Mg Tablet) 650 mg PO Q6H PRN PRN Reason: Pain, Mild (Pain Scale 1-3) Amlodipine Besylate (Amlodipine Besylate 5 Mg Tablet) 5 mg PO DAILY [facility]; Protocol Enoxaparin Sodium (Enoxaparin Sodium 80 Mg/0.8 Ml Syringe) 70 mg 1 mg/kg (70 m g) SUBCUT BID [facility] Last Admin: 10/28/22 07:50 Dose: 70 mg Melatonin (Melatonin 3 Mg Tablet) 6 mg PO BEDTIME PRN PRN Reason: Insomnia Last Admin: 10/27/22 23:41 Dose: 6 mg Multivitamins/Vitamin C (Multivitamin Tablet) 1 tab PO DAILY [facility] Last Admin: 10/28/22 07:51 Dose: 1 tab Omeprazole (Omeprazole 20 Mg Capsule.Dr) 20 mg PO DAILY@0600 [facility] Last Admin: 10/28/22 06:28 Dose: 20 mg Ondansetron HCl (Ondansetron Hcl 4 Mg/2 Ml Vial) 4 mg IVPUSH Q8H PRN PRN Reason: Nausea and Vomiting Pharmacy Consult (Consult Rx Perform Med Rec) 1 each MISCELLANE ONCE PRN PRN Reason: Consult order Sodium Chloride (0.9 % Sodium Chloride Flush 3 Ml Syringe) 3 ml IVFLUSH QSHIFT [facility] Last Admin: 10/28/22 12:51 Dose: 3 ml Home Medications Medication Instructions Recorded Confirmed Last Taken Type multivitamin 1 tab PO DAILY 10/27/22 10/27/22 10/27/22 History omeprazole magnesium 20 mg 20 mg PO DAILY 10/27/22 10/27/22 10/27/22 History tablet,delayed release (Prilosec OTC) Physical Exam Vital Signs: Vital Signs: Last Vital Signs Temp 97.8 F 10/28/22 15:56 Pulse 106 H 10/28/22 15:56 Resp 16 10/28/22 15:56 BP 198/85 H 10/28/22 15:56 Pulse Ox 96 10/28/22 15:56 O2 Del Method 10/28/22 15:56 BMI result Body Mass Index 27.4 Const: General: healthy appearing, comfortable, no acute distress, alert and awake Orientation/consciousness: patient oriented x3 HEENT: Head: Yes normal to inspection General nose exam: No nasal polyps present and No nasal discharge present Face and sinus: Yes sinuses nontender Mouth: oropharynx normal Throat: Yes posterior oropharynx normal Eyes: General: appearance normal, both eyes and all related structures Neck: Neck: Yes normal visual inspection, Yes no lymphadenopathy, Yes trachea midline and Yes no JVD Thyroid: Thyroid normal Chest: Chest palpation & inspection: normal inspection of the chest, normal palpation of entire chest wall and no tenderness Resp: Effort & Inspection: normal respiratory effort Auscultation: clear to auscultation bilaterally, no crackles, no rhonchi and no wheezes Cardio: Palpation: normal PMI Rate: regular rate Rhythm: regular rhythm Heart sounds: no gallops and no murmurs Peripheral pulses: Peripheral pulses 2+ throughout GI: Palpation (GI): Soft to palpation, nontender, No hepatosplenomegaly present and no masses Auscultation: normal bowel sounds Back/Spine/Pelvis: Thoracic/Lumbar Spine: thoracic and lumbar spine normal to inspection Skin: General skin exam: no rashes or lesions noted Neuro: General: patient oriented x3 and no focal motor deficits Cranial n erves: Yes CN's II-XII intact bilaterally Extrem: General: Yes normal to inspection, Yes no clubbing, cyanosis or edema and No no calf tenderness (He does have mild tenderness on the back of his left leg and knee area,) Psych: Appearance: grossly normal Speech and movement: Normal speech and movement present Results Laboratory Findings 10/28/22 06:55 10/28/22 06:55 Abnormal lab findings: Abnormal Labs 10/27/22 10/27/22 10/27/22 17:20 17:20 21:54 WBC 12.3 H Immature Gran % (Auto) 0.5 H Eos % (Auto) [place] # (Auto) Eos # (Auto) Abs Immat Gran (auto) 0.06 H BUN 18 H Random Glucose 215 H Troponin I High Sens 273.9 H* TSH 4.01 H 10/27/22 10/28/22 10/28/22 21:54 06:55 06:55 WBC 12.8 H Immature Gran % (Auto) 0.5 H Eos % (Auto) 4.3 H [place] # (Auto) 1.3 H Eos # (Auto) 0.6 H Abs Immat Gran (auto) 0.06 H BUN 17 H Random Glucose 153 H Troponin I High Sens 850.9 H* D TSH Diagnostic Findings Chest x-ray: report reviewed and image reviewed CT scan - chest: report reviewed and image reviewed U/S of Legs: report reviewed Assessment and Plan (1) Pulmonary embolism: Status: Acute (2) DVT (deep venous thrombosis): Status: Acute (3) Hypoxia: Status: Acute Plan This 82 years old very pleasant gentleman, has bilateral pulmonary emboli, secondary to venous thrombosis (DVT.) in the left lower leg. Respiratory status is the stable. No significant VQ abnormality, and patient is not even requiring oxygen. TX : Agree with the current treatment. Patient would need anticoagulation with Lovenox for at least 3 days, then switch to oral anti coagulants. I have explained to the patient in detail and reassured him. Time Spent With Patient Time: Total time managing care of this patient today ____ minutes. Procedures Date of Service Date of Service: 10/28/22
[2022-10-28] MEDS: amLODIPine Besylate 5 MG TABLET PO (17:44)
[2022-10-28 17:58] VITALS: BMI 29.6
[2022-10-28 19:24] VITALS: BP 154/64; PULSE 96; RESP 17; TEMP 37.1; O2SAT 92
[2022-10-28] MEDS: Melatonin 3 MG TABLET 6 MG PO (23:26)
[2022-10-29] VITALS: BP 153/64; PULSE 82; RESP 18; TEMP 37.2; O2SAT 94
[2022-10-29 04:00] VITALS: BP 151/70; PULSE 77; RESP 18; TEMP 37; O2SAT 94
[2022-10-29] MEDS: Omeprazole 20 MG CAPSULE.DR PO (05:48)
[2022-10-29 08:00] VITALS: BP 155/77; PULSE 84; RESP 20; TEMP 37.1; O2SAT 93
[2022-10-29] MEDS: Multivitamin TABLET 1 TAB PO (08:54)
[2022-10-29] MEDS: Enoxaparin Sodium 80 MG/0.8 ML SYRINGE 70 MG SUBCUT ×2 (08:54→21:55)
[2022-10-29] MEDS: amLODIPine Besylate 5 MG TABLET PO (08:54)
[2022-10-29] MEDS: 0.9 % Sodium Chloride Flush 3 ML SYRINGE IVFLUSH ×3 (08:54→23:33)
[2022-10-29 11:44] VITALS: BP 154/77; PULSE 88; RESP 20; TEMP 37.1; O2SAT 93
--- NOTE | 2022-10-29 12:18 | MHC.CM.PN ---
IMM 10/29/22 Given today for anticipated discharge tomorrow. Patient verbalized understanding that his discharge will be to home tomorrow self care. [facility] [place] MD Pamphlet has been given to patient. DP home self care with pts brother transporting pt home.
--- NOTE | 2022-10-29 13:20 | P.PNIM_ITS ---
Subjective Subjective Date of Service: 10/29/22 Interval History: complaining of shortness of breath with exertion, denies chest pain, shortness of breath or palpitation at rest, denies lightheadedness or dizziness, no left leg pain no other acute issues overnight finger oximetry 93% on room air. Review of Systems Review of Systems: Yes all other systems are reviewed and are negative Physical Exam Vital Signs: Vital Signs: Last Vital Signs Temp 98.8 F 10/29/22 11:44 Pulse 88 10/29/22 11:44 Resp 20 10/29/22 11:44 BP 154/77 H 10/29/22 11:44 Pulse Ox 93 10/29/22 11:44 O2 Del Method 10/29/22 11:44 BMI result Body Mass Index 29.6 Const: Other: General? resting c omfortably, in no acute distress.? N maria fernanda supple, no JVD . CVS? regular rat e rhythm, Respirat ory lungs clear to auscultation, no respiratory distre ss, no wheeze, no rhonchi. Gastroint estinal abdomen so ft, nontender, bow el sounds audible, no guarding , no rigidity. Extremit ies Left leg> rt .,no edema. Neuro nonfocal , speech clear. Skin no nico h Objective Data Active Medications Acetaminophen (Acetaminophen 325 Mg Tablet) 650 mg PO Q6H PRN PRN Reason: Pain, Mild (Pain Scale 1-3) Amlodipine Besylate (Amlodipine Besylate 5 Mg Tablet) 5 mg PO DAILY [facility]; Protocol Last Admin: 10/29/22 08:54 Dose: 5 mg Documented By: ELIE Enoxaparin Sodium (Enoxaparin Sodium 80 Mg/0.8 Ml Syringe) 70 mg 1 mg/kg (70 mg) SUBCUT BID [facility] Last Admin: 10/29/22 08:54 Dose: 70 mg Documented By: ELIE Melatonin (Melatonin 3 Mg Tablet) 6 mg PO BEDTIME PRN PRN Reason: Insomnia Last Admin: 10/28/22 23:26 Dose: 6 mg Documented By: NICHOL Multivitamins/Vitamin C (Multivitamin Tablet) 1 tab PO DAILY [facility] Last Admin: 10/29/22 08:54 Dose: 1 tab Documented By: ELIE Omeprazole (Omeprazole 20 Mg Capsule.) 20 mg PO DAILY@0600 [facility] Last Admin: 10/29/22 05:48 Dose: 20 mg Documented By: NICHOL Ondansetron HCl (Ondansetron Hcl 4 Mg/2 Ml Vial) 4 mg IVPUSH Q8H PRN PRN Reason: Nausea and Vomiting Pharmacy Consult (Consult Rx Perform Med Rec) 1 each MISCELLANE ONCE PRN PRN Reason: Consult order Sodium Chloride (0.9 % Sodium Chloride Flush 3 Ml Syringe) 3 ml IVFLUSH QSHIFT [facility] Last Admin: 10/29/22 08:54 Dose: 3 ml Documented By: FOGARTB Labs 10/28/22 06:55 10/28/22 06:55 Assessment and Plan (1) Pulmonary embolism: Status: Acute (2) GERD (gastroesophageal reflux disease): Status: Acute (3) Hypoxia: Status: Acute Plan 82-year-old male with pertinent history of gastroesophageal reflux disease presents to the emergency department for evaluation of tachypnea and tachycardia. #.? Acute respiratory distress and ambulatory hypoxemia due to Acute submassive PE: duplex lower extremity showed left lower extremity DVT. echo showed mild LVH, upper limit of right ventricular systolic pressures, dilated right ventricle with hypokinesis of the free wall suggestive of acute cor pulmonale continue therapeutic Lovenox will transition to p.o. anticoagulants prior to discharge.? patient seen by gravity prospecting operator helper Dr. Teran he recommend 3 days of Lovenox followed by oral anticoagulant will assess for home O2 prior to discharge with ambulation #. Elevated troponin:? Type 2 in the setting of increased demand, EKG showed no ischemic change, echo showed dilated right ventricle with hypokinesis of the free wall suggestive of acute cor pulmonale likely due to acute PE, diastolic function is indeterminate, EF 60-65%, no further cardiology intervention planned. #. reactive leukocytosis #. gastroesophageal reflux disease:? cont. Prilosec DVT prophylaxis: Therapeutic Lovenox Full code patient will need continued inpatient hospitalization? for treatment and workup for acute PE for close monitoring of hemodynamics. Time Spent With Patient Time: Total time managing care of this patient today ____ minutes. Quality Stroke Does the patient have a stroke diagnosis?: No VTE Prior VTE?: No VTE Risk Level:: Medical - moderate - high VTE Device Contraindication: Treatment Not Indicated VTE Drug Contraindication: N/A - Med Ordered
[2022-10-29 16:00] VITALS: BP 160/52; PULSE 87; RESP 18; TEMP 37.1; O2SAT 95
[2022-10-29 20:00] VITALS: BP 167/74; PULSE 85; RESP 20; TEMP 36.9; O2SAT 95
[2022-10-29] MEDS: Melatonin 3 MG TABLET 6 MG PO (21:55)
[2022-10-30 04:00] VITALS: BP 152/70; PULSE 75; RESP 18; TEMP 37.2; O2SAT 94
[2022-10-30] MEDS: Omeprazole 20 MG CAPSULE.DR PO (05:48)
[2022-10-30 07:59] VITALS: BP 168/72; PULSE 77; RESP 20; TEMP 37.1; O2SAT 94
[2022-10-30] MEDS: amLODIPine Besylate 5 MG TABLET PO (08:29)
[2022-10-30] MEDS: Enoxaparin Sodium 80 MG/0.8 ML SYRINGE 70 MG SUBCUT (08:29)
[2022-10-30] MEDS: Multivitamin TABLET 1 TAB PO (08:29)
[2022-10-30] MEDS: 0.9 % Sodium Chloride Flush 3 ML SYRINGE IVFLUSH (08:31)
--- NOTE | 2022-10-30 09:46 | MHC.CM.PN ---
IMM 10/29/22 MALE DISCHARGED TO HOME TODAY SELF CARE. HIS BROTHER WILL PROVIDE TRANSPORTATION HOME.
--- NOTE | 2022-10-30 10:42 | P.DS_ITS ---
DS: Providers Provider Date of Service: 10/30/22 Date of admission: 10/27/22 19:06 Primary care physician: CORDELL Colunga Consults: 10/28/22 15:11 Consult to Pulmonology Routine Consulting Provider: Ashwini Teran Reason for consultation: bilateral pulmonary embolism Has provider been notified: No DS: Diagnosis Discharge Diagnosis (1) Pulmonary embolism: Status: Acute (2) GERD (gastroesophageal reflux disease): Status: Acute (3) Hypoxia: Status: Acute DS: Summary Hospital Course Hospital Course: Date of Service: 10/27/22 Chief Complaint: Dyspnea ?this is a 82-year-old male with pertinent history of gastroesophageal reflux disease who presents to the emergency department for evaluation of tachypnea and tachycardia. patient states he had sudden onset of dyspnea which he had never experienced before.? It was worse with exertion.? Also noticed tachycardia.? Denies chest discomfort.? No history of blood clots in the past.? No history of hypercoagulability in family.? No recent travels.? Patient is ambulatory at baseline.? No history of cancer.? He denies fever, chills, cough, abdominal yohannes n, changes in urinary or bowel habits. In the emergency department, patient was found to have bilateral pulmonary emboli. hospital course: 82-year-old male with pertinent history of gastroesophageal reflux disease presents to the emergency department for evaluation of tachypnea and tachycardia and diagnosed to have. #.Acute respiratory distress and ambulatory hypoxemia due to Acute submassive PE, patient admitted to intermediate care unit and placed on therapeutic subcu Lovenox,duplex lower extremity showed left lower extremity DVT. ? ?echo showed mild LVH, upper limit of right ventricular systolic pressures, dilated right ventricle with hypokinesis of the free wall suggestive of acute cor pulmonale, patient evaluated by piccolo mechanic Dr. Teran he agreed with Lovenox treatment, patient shortness of breath and hypoxia resolved, since he is hemodynamically stable with no chest pain, no palpitations, lightheadedness or dizziness he is being discharged home on Eliquis and has been recommended close outpatient follow-up with primary care physician to repeat echo in next 2-4 weeks to assess improvement of right systolic function, also will need workup for thrombophilia and malignancy, elevated WBC likely reactive leukocytosis follow CBC as outpatient. #. Elevated troponin:? Type 2 in the setting of increased demand, EKG showed no ischemic change, echo? showed dilated right ventricle with hypokinesis of the free wall suggestive of acute cor pulmonale likely due to acute PE, ? ? diastolic function is indeterminate, EF 60-65%, no further cardiology intervention?, recommend repeat. #. hypertension continue Norvasc 5mg,with close outpatient blood pressure monitoring. #. gastroesophageal reflux disease:? cont. Prilosec Time Spent with Patient Time attestation: Total time managing care of this patient today ____ minutes. Discharge coordination time: Greater than 30 minutes Quality: Safe Use of Opioids Does Pt have an Active Cancer Diagnosis on the Problem List?: No Quality: Stroke Does the patient have a stroke diagnosis?: No Physical Exam Vital Signs: Vital Signs: Last Vital Signs Temp 98.8 F 10/30/22 07:59 Pulse 77 10/30/22 07:59 Resp 20 10/30/22 07:59 BP 168/72 H 10/30/22 07:59 Pulse Ox 94 10/30/22 07:59 O2 Del Method 10/30/22 07:59 BMI result Body Mass Index 29.6 Const: Other: General? resting comfortably, in no acute distress.? Neck supple, no JVD. CVS? regular rate rhythm, Respiratory lungs clear to auscultation, no respiratory distress, no wheeze, no rhonchi. Gastrointestinal abdomen soft, nontender, bowel sounds audible, no guarding , no rigidity. Extremities no edema. Neuro nonfocal , speech clear. Skin no rash Discharge Plan Discharge Anticipated Discharge Date/Time: 10/30/22 10:31 Patient Disposition: Home, Self-Care Discharge Diagnosis: acute bilateral PE left lower extremity DVT hypertension Referrals: Aishwarya Webster FNP [Primary Care Provider] - 11/04/22 9:00 am (scheduled new patient appointment. if you need to reschedule call office) Discharge Medications: New Eliquis 5 mg tablet 5 mg PO BID Qty: 194 0RF Rx Instructions: take Eliquis 10 mg (5mg 2 tablets) twice daily for 7 days, then Eliquis 5 mg 1 tablet twice daily amlodipine 5 mg Tablet 5 mg PO DAILY Qty: 90 0RF Protocol: Hold for SBP< HOLD for SBP < : 90 Continued multivitamin Tablet 1 tab PO DAILY omeprazole magnesium [Prilosec OTC] 20 mg Tablet,Delayed Release (Dr/Ec) 20 mg PO DAILY Discharge Orders: Discharge Order (Routine); Ordered 10/30/22 Ordered By: Jordan Camargo Diet: Low fat, low cholesterol Activity on Discharge: As tolerated Stand Alone Forms: Patient Portal Discharge page Care Plan Goals: bilateral PE with moderately decreased right systolic function left lower extremity DVT take Eliquis 5 mg 2 tablets twice daily for 1 week followed by Eliquis 5 mg 1 tablet twice daily follow-up with primary care physician for workup for malignancy and thrombophilia repeat echocardiogram in next 2-4 weeks to assess right heart function take Norvasc 5 mg 1 tablet daily for high blood pressure follow blood pressure closely as outpatient you may experience bleeding from minor cuts apply pressure for 30 minutes if noted to have worsening or heavy bleed return to emergency room Health Concerns: hypertension /right heart strain Plan of Treatment: follow-up with primary care physician call for appointment Assessment: as above
[2022-10-30 11:33] VITALS: BP 157/73; PULSE 86; RESP 20; TEMP 37; O2SAT 95
[2022-10-30 12:01] VITALS: PULSE 100; PULSE 101; O2SAT 91; O2SAT 95
== END 2022-10-30 13:21 | disposition home or self-care (01) | DRG 299 ==
LOC: HO.ED 19:26 → HO.EDOVER 20:26 → HO.IMC 10-28 14:28
PROVIDERS: Physician Assistant; Admitting Provider Student in an Organized Health Care Education/Training Program; Emergency Provider Emergency Medicine; PCP Nurse Practitioner Family; Visit Provider Hospitalist
DX: I82.412 Acute embolism and thrombosis of left femoral vein (principal); I26.09 Other pulmonary embolism with acute cor pulmonale; I24.8 Other forms of acute ischemic heart disease; I10 Essential (primary) hypertension; K21.9 Gastro-esophageal reflux disease without esophagitis; R06.03 Acute respiratory distress; D72.829 Elevated white blood cell count, unspecified; Z20.822 Contact with and (suspected) exposure to COVID-19; Z79.899 Other long term (current) drug therapy
CPT/HCPCS: 0241U; 36415; 71045; 71275; 80048; 80076; 83036; 83735; 83880; 84439; 84443; 84484; 85025; 85379; 93005; 93306; 93970; 99285; J1650; Q9957; Q9967

== ENCOUNTER 2022-12-14 10:54 | Outpatient (REF) | payer MEDICARE, SELFPAY ==
[2022-12-14 11:48] LABS: Hematocrit 45.1 % (42.0-52.0); Mean Corpuscular HGB Conc 33.3 g/dl (31.0-36.0); Mean Corpuscular Hemoglobin 28.6 pg (27.0-33.0); Mean Corpuscular Volume 86.1 fL (80.0-98.0); Platelet Count 209 X10*3/uL (160-400); Red Blood Count 5.24 X10*6/uL (4.60-5.80); Red Cell Distribution Width 14.2 % (11.0-16.0); White Blood Count 8.3 X10*3/uL (4.8-10.8)
[2022-12-14 12:12] LABS: B Type Natriuretic Peptide 50 pg/mL (<100)
[2022-12-14 12:14] LABS: Alanine Aminotransferase 18 U/L (0-40); Albumin Level 3.9 g/dL (3.5-5.0); Alkaline Phosphatase 80 U/L (39-117); Anion Gap 11 (12-20); Aspartate Amino Transferase 22 U/L (5-37); Bilirubin Total 1.3 mg/dL (0.0-1.0); Blood Urea Nitrogen 19 mg/dL (9-16); Calcium 9.2 mg/dL (8.4-10.2); Carbon Dioxide 27 mmol/L (22-29); Chloride 107 mmol/L (96-108); Cholesterol 243 mg/dL; Estimated Glomerular Filt Rate 54; Glucose Random 137 mg/dL (60-115); HDL Cholesterol 57 mg/dL; LDL Cholesterol Calculated 153 mg/dl; Potassium 4.4 mmol/L (3.3-5.1); Sodium 141 mmol/L (135-145); Total Protein 6.5 g/dL (6.5-8.0); Triglycerides 169 mg/dL
[2022-12-14 12:21] LABS: Estimated Average Glucose 160 mg/dL; Hemoglobin A1c % 7.2 %
[2022-12-14 12:31] LABS: TSH reflex Free T4 3.33 uIU/mL (0.32-4.0)
== END 2022-12-14 10:55 | disposition home or self-care (01) ==
LOC: HO.LAB 10:54
PROVIDERS: Visit Provider Nurse Practitioner Family
DX: I10 Essential (primary) hypertension (principal); R60.0 Localized edema; Z13.29 Encounter for screening for other suspected endocrine disorder; Z13.220 Encounter for screening for lipoid disorders; Z13.1 Encounter for screening for diabetes mellitus; Z13.0 Encounter for screening for diseases of the blood and blood-forming organs and certain disorders involving the immune mechanism; E11.9 Type 2 diabetes mellitus without complications
CPT/HCPCS: 36415; 80053; 80061; 83036; 83880; 84443; 85027

== ENCOUNTER → 2022-12-18 12:57 | Outpatient (REF) | payer MEDICARE, SELFPAY ==
--- NOTE | 2022-12-18 12:59 | CA_ITS ---
Transthoracic Echocardiogram Limited Patient (Last, First, Middle): Clovis Randall, Gender: Male Date of : 1940 Age: 82 Procedure Date: 12/18/2022 Procedure Type: Transthoracic Echocardiogram Limited Location: OP Height: 162.56 cm Weight: 78.02 kg BSA: 1.83 m2 Heart Rate: bpm BP: 124 / 70 mmHg Traffic Engineer: Referring MD: Aishwarya LANDA Symptoms: R93.1 Abn findings on diagnostic imaging of heart, Cor Pulmonal, assess RV Study Quality: Good ECG Rhythm: Sinus Conclusions: - The left ventricular systolic function is normal. The calculated ejection fraction is 65% by biplane method. - Moderately increased right ventricular cavity size. There is normal right ventricular systolic function. Findings Left Ventricle Normal left ventricular cavity size. The left ventricular systolic function is normal. The calculated ejection fraction is 65% by biplane method. There is no evidence of regional wall motion abnormalities. LV peak GLS -17.6%. Right Ventricle Moderately increased right ventricular cavity size. There is normal right ventricular systolic function. Tricuspid Valve There is mild tricuspid valve regurgitation. Mild pulmonary hypertension is present. Venous The inferior vena cava is normal in size and collapses greater than 50% with inspiration. Prior Study Comparison Changes noted compared to prior study dated: 10/28/2022. Improved RV systolic function. Measurements 2D Linear Measurements IVSd: 0.92 0.6-0.9/0.6-1.0 cm LVIDd: 3.90 3.9-5.3/4.2-5.9 cm LVIDd Index: 2.13 2.4-3.2/2.2-3.1 cm/m2 LVIDs: 2.37 2.0-3.6 cm LVPWd: 0.91 0.7-1.1 cm LV Mass: 133.56 67-162/88-224 g LV Mass Index: 72.98 43-95/49-115 g/m2 2D Systolic Function EF 4C: 67.40 >55% EF 2C: 57.00 >55% EF BiP: 64.70 >55% Right Ventricle TAPSE (mm): 28.00 TVS' Manuel: 19.00 Tricuspid Valve TR Pk Manuel: 2.84 TR Pk Grad: 32.00 RA Press: 3.00 RVSP: 35.00 Updated in Other Vendor System with Status of Final Deniz Ngo MD electronically signed on 12/20/2022 12:41:30 PM with status of Final
== END ==
LOC: HO.CARD 12:57
PROVIDERS: PCP Internal Medicine; Visit Provider Nurse Practitioner Family
DX: R93.1 Abnormal findings on diagnostic imaging of heart and coronary circulation (principal)
CPT/HCPCS: 93308

== ENCOUNTER → 2023-01-01 14:13 | Outpatient (BNV) | payer MEDICARE, SELFPAY | PROVIDERS: PCP Internal Medicine; Visit Provider Internal Medicine Medical Oncology | DX: I26.99 Other pulmonary embolism without acute cor pulmonale (principal); Z79.01 Long term (current) use of anticoagulants | CPT/HCPCS: 99204; 99213 ==

== ENCOUNTER 2023-03-04 12:51 | Outpatient (REF) | payer MEDICARE, SELFPAY | END 2023-03-04 12:52 | disposition home or self-care (01) | LOC: HO.US 12:51 | PROVIDERS: PCP Internal Medicine; Visit Provider Internal Medicine Medical Oncology | DX: I26.99 Other pulmonary embolism without acute cor pulmonale (principal) | CPT/HCPCS: 93971 ==

== ENCOUNTER 2023-08-31 14:50 | Outpatient (AMB) | payer MEDICARE, SELFPAY ==
[2023-08-31 14:50] VITALS: BP 166/62; PULSE 94; O2SAT 99; BMI 31.1
--- NOTE | 2023-08-31 14:50 | A.OFFPC_ITS ---
Vital Signs 08/31/23 14:50 Height 5 ft 4 in Weight 181 lb BMI 31.1 BP 166/62 H Blood Pressure Location Lt brachial Position Sitting Pulse 94 Pulse Source Pulse Oximeter Pulse Oximetry (%) 99 Oxygen Delivery Method Room Air Intake Visit Reasons: PE/ transferring care Freight Separator Required: No Allergies No Known Allergies Allergy (Verified 08/31/23 14:51) Medication List - Last Reconciled 08/31/23 by Mike Gonzalez MD amlodipine 5 mg See Protocol PO DAILY apixaban (Eliquis) 5 mg PO BID lorazepam 0.5 mg PO BEDTIME PRN metformin 500 mg PO DAILY multivitamin 1 tab PO DAILY omeprazole magnesium (Prilosec OTC) 20 mg PO DAILY Tobacco use date assessed: 08/31/23 Fall risk assessment: No Falls in past year Last assessed Fall Risk: 08/31/23 Dental Screening Dental Screen Date: 08/31/23 Did you have a dental visit in the last 12 months?: Yes Did you have a dental problem in the last 6 months where you did not have access to dental care?: No Was dental information given to patient?: Patient has dentist HPI PE/ transferring care HPI Details 83-year-old obese male with hypercholest erolemia hypertension insomnia history of DVT and pulmonary embolism coming in for follow-up. Last seen in November 2022. Patient sees hematology oncology left leg DVT with submassive PE october. Repeat ultrasound March 04 no DVT with resolution patient was prescribed lorazepam to help at night. Presently anticoagulation is due to atrial fibrillation.. Patient follows up with Cardiology echocardiogram done in November 2022 shows left ventricular ejection fraction normal 65% moderately increased right ventricular size normal right ventricular function. Concenr about atrial fibrillaiton as I do not see the diagnosis [facility] Medical History (Updated 08/31/23 @ 15:54 by Mike Gonzalez MD) GERD (gastroesophageal reflux disease) Type 2 diabetes mellitus Venous thromboembolism (VTE) DVT (deep venous thrombosis) Family History Father No problems noted. Mother No problems noted. Brother Diabetes Social History (Updated 08/31/23 @ 15:39 by Mike Gonzalez MD) Household Members: None Housing: House Do you presently have visiting nurse or other home services: No Alcohol intake: current Alcohol intake frequency: 3 or more drinks per day Alcohol type: hard liquor Comment: 1 shot of alcohol a day Patient Tobacco Use Status: Never used Tobacco e-Cigarette/Vaping Use: Never Used service: Yes Current occupational status: retired Cognitive needs: No Hearing needs: No Vision needs: No Questionnaire PHQ-9 Over the last 2 weeks, how often have you been bothered by any of the following problems? 1. Little interest or pleasure in doing things: not at all 2. Feeling down, depressed, or hopeless: not at all 3. Trouble falling or staying asleep, or sleeping too much: nearly every day (staying asleep ) 4. Feeling tired or having little energy: not at all 5. Poor appetite or overeating: not at all 6. Feeling bad about yourself - or that you are a failure or have let yourself or your family down: not at all 7. Trouble concentrating on things, such as reading the newspaper or watching television: not at all 8. Moving or speaking so slowly that other people could have noticed. Or the opposite - being so fidgety or restless that you have been moving around a lot more than usual: not at all 9. Thoughts that you would be better off or of hurting yourself in some way: not at all Total score: 3 Depression Screening Interpretation: Negative Depression Screening Done: Yes Source: Developed by Drs. Filemon Ni, Estefania Shabazz, Guillermo Mcpherson and colleagues, with an educational sunil from [employer]. Thrive Questionnaire Date Thrive assessed: 12/11/22 I am a: Patient What is your living situation today?: I have a steady place to live Within the past 12 months, did the food you bought not last and you didn't have the money to get more?: Never true Within the past 12 months, did you worry whether your food would run out before you got money to buy more?: Never true Do you have trouble paying for medicines?: No Do you have trouble getting transportation to medical appointments?: No Do you have trouble paying your heating and electricity bill?: No Do you have trouble taking care of your child, family member or friend?: No Do you have trouble with day-to-day activities such as bathing, preparing meals, shopping, managing finances, etc.?: No Are you currently unemployed and looking for a job?: No Are you interested in more education?: No AUDIT C Alcohol Use Questionnaire (AUDIT-C) 1. How often do you have a drink containing alcohol?: Never Total Score: 0 MARY-7 AMB Questionnaire MARY-7 Date MARY - 7 assessed: 08/31/23 Feeling nervous, anxious, or on edge: 0 = Not at all Not being able to stop or control worryin = Not at all Worrying too much about different things: 0 = Not at all Trouble relaxin = Not at all Being so restless that it is hard to sit still: 0 = Not at all Becoming easily annoyed or irritable: 0 = Not at all Feeling afraid as if something awful might happen: 0 = Not at all Total MARY-7 score (0-4 normal; 5-9 mild; 10-14 moderate; 15-21 severe): 0 Source: Developed by Drs. Filemon Ni, Estefania Shabazz, Guillermo Mcpherson and colleagues, with an educational sunil from [employer]. Physical exam (Primary Care) Vital Signs: Last Vital Signs Pulse 94 08/31/23 14:50 BP 166/62 H 08/31/23 14:50 Pulse Ox 99 08/31/23 14:50 Oxygen Delivery Method Room Air 08/31/23 14:50 BMI result Body Mass Index 31.1 Tobacco/Smoking Status: Tobacco use Status Tobacco use date assessed 08/31/23 08/31/23 14:52 Patient Tobacco Use Status Never used Tobacco 08/31/23 15:39 e-Cigarette/Vaping Use Never Used 08/31/23 15:39 PHQ-9: PHQ-9 Score PHQ-9: Total score 3 08/31/23 15:21 Depression Screening Interpretation: Negative Thrive Assessment: Date of Thrive Assessment Date Thrive assessed 12/11/22 08/31/23 14:52 Const General: alert; No acute distress Eyes Conjunctivae: conjunctivae normal Resp Auscultation: clear to auscultation bilaterally Cardio Rate: regular rate Rhythm: regular rhythm GI Inspection: Yes normal to inspection Extrem General: Yes normal to inspection and No edema Results AMB Hemoglobin A1c AMB Hemoglobin A1c 7.0 % Last Edit by ELEAZAR Couch on 08/31/23 15:06 Results Reviewed Results Reviewed: Laboratory Last Values Hgb A1c (Clinic) 7.0 % (4.0-6.0) H 08/31/23 15:04 Assessment and Plan Assessment & Plan (1) Type 2 diabetes mellitus with hyperglycemia: Code(s): E11.65 - Type 2 diabetes mellitus with hyperglycemia Plan: Decrease the amount of carbohydrate intake, pasta, bread, rice and potatoes are all sugar and that is aside from all the sweet stuff, remember that fruits are good but they are Sweet also. Hemoglobin A1c goal of less than 7.0. Patient is on metformin 500 mg once a day. Former[facility], 1928–1983 (2) Hyperlipidemia: Code(s): E78.5 - Hyperlipidemia, unspecified Plan: Avoid fried foods, chicken skin, eggs, butter margarine, pastries and meat. Be it pork or beef they have a lot of cholesterol LDL goal of less than 100 patient presently on no medication. declined to med (3) Hypertension: Code(s): I10 - Essential (primary) hypertension Plan: Continue with blood pressure medication. Decrease salt intake and exercise takes amlodipine 5 mg once a day. decline any addisional med (4) DVT (deep venous thrombosis): Comment: October 2022 ultrasound February 2023 resolved Code(s): I82.409 - Acute embolism and thrombosis of unspecified deep veins of unspecified lower extremity Plan: Patient is being followed up by hematology oncology resolved DVT. (5) Pulmonary embolism: Code(s): I26.99 - Other pulmonary embolism without acute cor pulmonale Plan: Resolved (6) Insomnia: Code(s): G47.00 - Insomnia, unspecified Plan: Patient was prescribed lorazepam p.r.n. (7) GERD (gastroesophageal reflux disease): Code(s): K21.9 - Gastro-esophageal reflux disease without esophagitis (8) Onychomycosis: Code(s): B35.1 - Tinea unguium Plan: discussed treatment options Orders: Orders AMB Hemoglobin A1c Today E11.9 - Type 2 diabetes mellitus without complications Medications: New zolpidem (Ambien) 5 mg PO BEDTIME PRN 25 tabs 0RF sleep G47.00 - Insomnia, unspecified esomeprazole magnesium (Nexium) 20 mg PO DAILY 30 caps 1RF K21.9 - Gastro- esophageal reflux disease without esophagitis Changed From apixaban (Eliquis) 5 mg PO BID 60 tabs 3RF I26.99 - Other pulmonary embolism without acute cor pulmonale, I82.409 - Acute embolism and thrombosis of unspecified deep veins of unspecified lower extremity To apixaban (Eliquis) 5 mg PO BID 90 days 180 tabs 1RF I26.99 - Other pulmonary embolism without acute cor pulmonale, I82.409 - Acute embolism and thrombosis of unspecified deep veins of unspecified lower extremity Discontinued lorazepam Discontinued Reason: Patient Completed Course 0.5 mg PO BEDTIME PRN 30 tabs 0RF Anxiety Coding Level of Care Code New Pt Level 4 (28309) Diagnoses Type 2 diabetes mellitus with hyperglycemia E11.65 Hyperlipidemia E78.5 Hypertension I10 DVT (deep venous thrombosis) I82.409 Pulmonary embolism I26.99 Insomnia G47.00 GERD (gastroesophageal reflux disease) K21.9 Onychomycosis B35.1
== END 2023-08-31 16:27 | disposition home or self-care (01) ==
PROVIDERS: PCP Nurse Practitioner Family; Visit Provider Internal Medicine
DX: E11.65 Type 2 diabetes mellitus with hyperglycemia (principal); I82.409 Acute embolism and thrombosis of unspecified deep veins of unspecified lower extremity; I26.99 Other pulmonary embolism without acute cor pulmonale; E11.69 Type 2 diabetes mellitus with other specified complication; E78.5 Hyperlipidemia, unspecified; I10 Essential (primary) hypertension; G47.00 Insomnia, unspecified; K21.9 Gastro-esophageal reflux disease without esophagitis; B35.1 Tinea unguium
CPT/HCPCS: 83036; 99204

== ENCOUNTER 2023-11-19 15:14 | Outpatient (AMB) | payer MEDICARE, SELFPAY ==
--- NOTE | 2023-11-19 15:16 | A.OFFPC_ITS ---
Vital Signs 11/19/23 15:17 Height 5 ft 4 in Weight 178 lb 8 oz BMI 30.6 BP 160/60 H Blood Pressure Location Lt brachial Position Sitting Pulse 87 Pulse Source Pulse Oximeter Pulse Oximetry (%) 96 Oxygen Delivery Method Room Air Intake Visit Reasons: Insomnia/Cholesterol Intake Note: Patient is here to follow up on Insomnia, Cholesterol. 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 Required: No Private Investigator: Not Required per policy Accompanied by: Self / Same As Patient Allergies No Known Allergies Allergy (Verified 11/19/23 15:17) Medication List - Last Reconciled 11/19/23 by Mike Gonzalez MD amlodipine 5 mg See Protocol PO DAILY apixaban (Eliquis) 5 mg PO BID 90 days dexlansoprazole (Dexilant) 60 mg PO DAILY lisinopril 10 mg PO DAILY metformin 500 mg PO DAILY multivitamin 1 tab PO DAILY zolpidem (Ambien) 5 mg PO BEDTIME PRN Tobacco use date assessed: 11/19/23 Fall risk assessment: No Falls in past year Last assessed Fall Risk: 11/19/23 Dental Screening Dental Screen Date: 11/19/23 Did you have a dental visit in the last 12 months?: Yes Did you have a dental problem in the last 6 months where you did not have access to dental care?: No Was dental information given to patient?: Patient has dentist HPI Insomnia/Cholesterol HPI Details 83-year-old obese male with controlled d iabetes mellitus hypertension hypercholesterolemia history of DVT with pulmonary embolism insomnia GERD last seen in August 2023. [facility] Medical History (Updated 08/31/23 @ 15:54 by Mike Gonzalez MD) GERD (gastroesophageal reflux disease) Type 2 diabetes mellitus Venous thromboembolism (VTE) DVT (deep venous thrombosis) Family History Father No problems noted. Mother No problems noted. Brother Diabetes Social History Household Members: None Housing: House Do you presently have visiting nurse or other home services: No Alcohol intake: current Alcohol intake frequency: 3 or more drinks per day Alcohol type: hard liquor Comment: 1 shot of alcohol a day Patient Tobacco Use Status: Never used Tobacco e-Cigarette/Vaping Use: Never Used service: Yes Current occupational status: retired Cognitive needs: No Hearing needs: No Vision needs: No Questionnaire Thrive Questionnaire Date Thrive assessed: 12/11/22 MARY-7 AMB Questionnaire MARY-7 Date MARY - 7 assessed: 08/31/23 Source: Developed by Drs. Filemon Ni, Estefania Shabazz, Guillermo Mcpherson and colleagues, with an educational sunil from [employer]. Physical exam (Primary Care) Vital Signs: Last Vital Signs Pulse 87 11/19/23 15:17 BP 160/60 H 11/19/23 15:17 Pulse Ox 96 11/19/23 15:17 Oxygen Delivery Method Room Air 11/19/23 15:17 BMI result Body Mass Index 30.6 Tobacco/Smoking Status: Tobacco use Status Tobacco use date assessed 11/19/23 11/19/23 15:22 Patient Tobacco Use Status Never used Tobacco 11/19/23 15:22 e-Cigarette/Vaping Use Never Used 11/19/23 15:22 Thrive Assessment: Date of Thrive Assessment Date Thrive assessed 12/11/22 11/19/23 15:22 Const General: alert; No acute distress Eyes Conjunctivae: conjunctivae normal Resp Auscultation: clear to auscultation bilaterally Cardio Rate: regular rate Rhythm: regular rhythm GI Inspection: Yes normal to inspection Extrem General: Yes normal to inspection and No edema Office Procedures Cerumen Removal From which ear canal was the cerumen removed: bilateral Removal: irrigation Notes: patient tolerated procedure well, no complications and ear canal clear [id number] Irrigation/Lavage Assessment and Plan Assessment & Plan (1) Type 2 diabetes mellitus with hyperglycemia: Code(s): E11.65 - Type 2 diabetes mellitus with hyperglycemia Plan: Decrease the amount of carbohydrate intake, pasta, bread, rice and potatoes are all sugar and that is aside from all the sweet stuff, remember that fruits are g ood but they are Sweet also. Hemoglobin A1c goal of less than 7.0. Patient on metformin 500 mg once a day (2) GERD (gastroesophageal reflux disease): Code(s): K21.9 - Gastro-esophageal reflux disease without esophagitis Plan: Avoid the foods that causes that usually spicy foods, tomato products, juices, coffee, soda and foods that your sensitive to. After eating do not lie down, allow 3-4 hours before in lie down. And keep the head of bed above 30 degrees to avoid the acid from going up. (3) Hypertension: Code(s): I10 - Essential (primary) hypertension Plan: Blood pressure patient on amlodipine 5 mg once a day right now. (4) Pulmonary embolism: Code(s): I26.99 - Other pulmonary embolism without acute cor pulmonale Plan: Continue with anticoagulation (5) Hyperlipidemia: Code(s): E78.5 - Hyperlipidemia, unspecified Plan: Avoid fried foods, chicken skin, eggs, butter margarine, pastries and meat. Be it pork or beef they have a lot of cholesterol LDL goal of less than 100 and triglyceride of less than 150. Patient not on cholesterol medication has been advised to get blood work done Orders: Orders Microalbumin, Random (w Creat) Today E11.65 - Type 2 diabetes mellitus with hyperglycemia Thyroid Stimulating Hormone Today E11.65 - Type 2 diabetes mellitus with hyperglycemia Vitamin B12 and Folate Today E11.65 - Type 2 diabetes mellitus with hyperglycemia Hemoglobin A1c Today E11.9 - Type 2 diabetes mellitus without complications Complete Blood Count Auto Diff Today E11.65 - Type 2 diabetes mellitus with hyperglycemia Comprehensive Met. Panel Today E11.65 - Type 2 diabetes mellitus with hyperglycemia Creatinine Urine Today E11.65 - Type 2 diabetes mellitus with hyperglycemia Lipid Panel Today E11.65 - Type 2 diabetes mellitus with hyperglycemia, E78.00 - Pure hypercholesterolemia, unspecified Free T4 (Free Thyroxine) Today E11.65 - Type 2 diabetes mellitus with hyperglycemia Medications: New lisinopril 10 mg PO DAILY 30 tabs 3RF E11.65 - Type 2 diabetes mellitus with hyperglycemia dexlansoprazole (Dexilant) 60 mg PO DAILY 90 caps 3RF K21.9 - Gastro-esophageal reflux disease without esophagitis Refilled amlodipine 5 mg See Protocol PO DAILY 90 tabs 1RF E11.65 - Type 2 diabetes mellitus with hyperglycemia Discontinued esomeprazole magnesium (Nexium) Discontinued Reason: Ancillary Entered New Order 20 mg PO DAILY 30 caps 1RF K21.9 - Gastro-esophageal reflux disease without esophagitis Coding Level of Care Code Est Pt Level 4 (02947) Diagnoses Type 2 diabetes mellitus with hyperglycemia E11.65 GERD (gastroesophageal reflux disease) K21.9 Hypertension I10 Pulmonary embolism I26.99 Hyperlipidemia E78.5 CPT Codes Office Procedure - CPT: 93254-Biz Irrigation/Lavage ([id number])
[2023-11-19 15:17] VITALS: BP 160/60; PULSE 87; O2SAT 96; BMI 30.6
== END 2023-11-19 16:28 | disposition home or self-care (01) ==
LOC: HO.HMGH 15:14
PROVIDERS: PCP Internal Medicine; Visit Provider Internal Medicine
DX: E11.65 Type 2 diabetes mellitus with hyperglycemia (principal); I26.99 Other pulmonary embolism without acute cor pulmonale; K21.9 Gastro-esophageal reflux disease without esophagitis; I10 Essential (primary) hypertension; E78.5 Hyperlipidemia, unspecified; H61.23 Impacted cerumen, bilateral
CPT/HCPCS: 69209; 99214

== ENCOUNTER 2023-12-23 12:46 | Outpatient (REF) | payer MEDICARE, SELFPAY ==
[2023-12-23 13:02] LABS: MANUAL DIFF FLAG NO
[2023-12-23 13:14] LABS: Basophils Absolute Auto 0.1 X10*3/uL (0.0-0.2); Basophils Percent Auto 1.3 % (0-2); Eosinophils Absolute Auto 0.6 X10*3/uL (0.0-0.4); Eosinophils Percent Auto 6.4 % (0-4); Hematocrit 46.7 % (42.0-52.0); Hemoglobin 16.4 g/dl (14.0-18.0); Imm Gran Abs Auto 0.04 X10*3/uL (0.00-0.03); Imm Gran Pct Auto 0.5 % (0.0-0.4); Lymphocytes Absolute Auto 3.6 X10*3/uL (1.2-4.9); Lymphocytes Percent Auto 41.5 % (20-40); Mean Corpuscular HGB Conc 35.1 g/dl (31.0-36.0); Mean Corpuscular Hemoglobin 30.8 pg (27.0-33.0); Mean Corpuscular Volume 87.6 fL (80.0-98.0); Monocytes Absolute Auto 0.8 X10*3/uL (0.1-1.2); Monocytes Percent Auto 8.7 % (2-11); Neutrophils Absolute Auto 3.6 x10*3/uL (2.0-8.3); Neutrophils Percent Auto 41.6 % (45-73); Platelet Count 224 X10*3/uL (160-400); Red Blood Count 5.33 X10*6/uL (4.60-5.80); White Blood Count 8.7 X10*3/uL (4.8-10.8)
[2023-12-23 13:34] LABS: Estimated Average Glucose 140 mg/dL; Hemoglobin A1c % 6.5 % (<6.0)
[2023-12-23 14:06] LABS: Alanine Aminotransferase 19 U/L (0-40); Albumin Level 4.4 g/dL (3.5-5.0); Alkaline Phosphatase 64 U/L (39-117); Anion Gap 10 (12-20); Aspartate Amino Transferase 22 U/L (5-37); Bilirubin Total 0.7 mg/dL (0.0-1.0); Blood Urea Nitrogen 26 mg/dL (9-16); Calcium 9.9 mg/dL (8.4-10.2); Carbon Dioxide 28 mmol/L (22-29); Chloride 107 mmol/L (96-108); Cholesterol 256 mg/dL (<200); Estimated Glomerular Filt Rate 46; Glucose Random 132 mg/dL (60-115); HDL Cholesterol 63 mg/dL (>40); LDL Cholesterol Calculated 164 mg/dL (<100); Potassium 4.6 mmol/L (3.3-5.1); Sodium 140 mmol/L (135-145); Total Protein 7.6 g/dL (6.5-8.0); Triglycerides 149 mg/dL (<150)
[2023-12-23 14:34] LABS: Free T4 (Free Thyroxine) 0.88 ng/dL (0.71-1.85); Thyroid Stimulating Hormone 4.75 uIU/mL (0.32-4.0)
[2023-12-23 14:42] LABS: Creatinine Urine 139.92 mg/dL
[2023-12-23 14:42] LABS: Folate 14.4 ng/mL (> or = 4.0)
[2023-12-23 21:04] LABS: Vitamin B12 725 pg/mL (200-900)
== END 2023-12-23 12:47 | disposition home or self-care (01) ==
LOC: HO.LAB 12:46
PROVIDERS: Visit Provider Internal Medicine
DX: E11.65 Type 2 diabetes mellitus with hyperglycemia (principal); E78.00 Pure hypercholesterolemia, unspecified
CPT/HCPCS: 36415; 80053; 80061; 82043; 82570; 82607; 82746; 83036; 84439; 84443; 85025

== ENCOUNTER 2024-04-28 12:15 | Outpatient (REF) | payer MEDICARE, SELFPAY ==
[2024-04-28 12:29] LABS: MANUAL DIFF FLAG NO
[2024-04-28 13:17] LABS: Basophils Absolute Auto 0.1 X10*3/uL (0.0-0.2); Basophils Percent Auto 1.2 % (0-2); Eosinophils Absolute Auto 0.4 X10*3/uL (0.0-0.4); Eosinophils Percent Auto 5.1 % (0-4); Hematocrit 44.7 % (42.0-52.0); Hemoglobin 15.5 g/dl (14.0-18.0); Imm Gran Abs Auto 0.03 X10*3/uL (0.00-0.03); Imm Gran Pct Auto 0.4 % (0.0-0.4); Lymphocytes Absolute Auto 3.2 X10*3/uL (1.2-4.9); Lymphocytes Percent Auto 38.3 % (20-40); Mean Corpuscular HGB Conc 34.7 g/dl (31.0-36.0); Mean Corpuscular Hemoglobin 30.8 pg (27.0-33.0); Mean Corpuscular Volume 88.9 fL (80.0-98.0); Mean Platelet Volume 10.5 fL (9.4-12.4); Monocytes Absolute Auto 0.9 X10*3/uL (0.1-1.2); Monocytes Percent Auto 10.6 % (2-11); Neutrophils Absolute Auto 3.7 x10*3/uL (2.0-8.3); Neutrophils Percent Auto 44.4 % (45-73); Platelet Count 222 X10*3/uL (160-400); Red Blood Count 5.03 X10*6/uL (4.60-5.80); Red Cell Distribution Width 13.2 % (11.0-16.0); White Blood Count 8.4 X10*3/uL (4.8-10.8)
[2024-04-28 13:24] LABS: Estimated Average Glucose 137 mg/dL; Hemoglobin A1c % 6.4 % (<6.0)
[2024-04-28 14:15] LABS: Alanine Aminotransferase 20 U/L (0-40); Albumin Level 4.2 g/dL (3.5-5.0); Alkaline Phosphatase 62 U/L (39-117); Anion Gap 10 (12-20); Aspartate Amino Transferase 27 U/L (5-37); Bilirubin Total 0.9 mg/dL (0.0-1.0); Blood Urea Nitrogen 28 mg/dL (9-16); Carbon Dioxide 26 mmol/L (22-29); Chloride 106 mmol/L (96-108); Cholesterol 241 mg/dL (<200); Estimated Glomerular Filt Rate 44; Glucose Random 124 mg/dL (60-115); HDL Cholesterol 63 mg/dL (>40); LDL Cholesterol Calculated 143 mg/dL (<100); Potassium 4.4 mmol/L (3.3-5.1); Sodium 138 mmol/L (135-145); Triglycerides 179 mg/dL (<150)
[2024-04-28 14:23] LABS: Free T4 (Free Thyroxine) 0.76 ng/dL (0.71-1.85); Thyroid Stimulating Hormone 6.41 uIU/mL (0.32-4.0)
[2024-04-28 16:26] LABS: Creatinine Urine 103.85 mg/dL
== END 2024-04-28 12:16 | disposition home or self-care (01) ==
LOC: HO.LAB 12:15
PROVIDERS: PCP Internal Medicine; Visit Provider Internal Medicine
DX: E11.65 Type 2 diabetes mellitus with hyperglycemia (principal); E78.5 Hyperlipidemia, unspecified; E78.00 Pure hypercholesterolemia, unspecified
CPT/HCPCS: 36415; 80053; 80061; 82570; 83036; 84439; 84443; 85025

== ENCOUNTER 2024-06-02 14:15 | Outpatient (AMB) | payer MEDICARE, SELFPAY ==
[2024-06-02 14:17] VITALS: BP 144/68; PULSE 87; O2SAT 93; BMI 30.2
--- NOTE | 2024-06-02 14:17 | A.OFFPC_ITS ---
Vital Signs 06/02/24 14:17 Height 5 ft 4 in Weight 176 lb BMI 30.2 BP 144/68 H Blood Pressure Location Lt brachial Position Sitting Pulse 87 Pulse Source Pulse Oximeter Pulse Oximetry (%) 93 Oxygen Delivery Method Room Air Intake Visit Reasons: wellness check blood work results Skirt Trimmer Required: No Accompanied by: Self / Same As Patient Allergies No Known Allergies Allergy (Verified 06/02/24 14:24) Medication List - Last Reconciled 06/02/24 by Mike Gonzalez MD amlodipine 5 mg See Protocol PO DAILY apixaban (Eliquis) 5 mg PO BID 90 days dexlansoprazole (Dexilant) 60 mg PO DAILY [flax seed PO] lisinopril 10 mg PO DAILY metformin 500 mg PO DAILY multivitamin 1 tab PO DAILY omega [id number]-fish oil 60-90-500 mg (Fish Oil) 1 cap PO DAILY zolpidem (Ambien) 5 mg PO BEDTIME PRN Tobacco use date assessed: 11/19/23 Fall risk assessment: No Falls in past year Last assessed Fall Risk: 06/02/24 Dental Screening Dental Screen Date: 11/19/23 HPI wellness check blood work results HPI Details 84-year-old obese male with diabetes dejuan litus GERD hypertension history of pulmonary embolism and hypercholesterolemia last seen in 11/17/2023. Patient is here for ff up. Colonoscopy 2010. Review of the notes has seen hematology oncology had ultrasound done in March 04 no DVT advised to come off Eliquis( however has atrial fibrillation but I do not see any notation ).. Patient declines taking any medication. [facility] Medical History (Updated 06/02/24 @ 18:18 by Mike Gonzalez MD) GERD (gastroesophageal reflux disease) Type 2 diabetes mellitus Venous thromboembolism (VTE) DVT (deep venous thrombosis) Family History Father No problems noted. Mother No problems noted. Brother Diabetes Social History Household Members: None Housing: House Do you presently have visiting nurse or other home services: No Alcohol intake: current Alcohol intake frequency: 3 or more drinks per day Alcohol type: hard liquor Comment: 1 shot of alcohol a day Patient Tobacco Use Status: Never used Tobacco Tobacco use type: Cigarette e-Cigarette/Vaping Use: Never Used service: Yes Current occupational status: retired Cognitive needs: No Hearing needs: No Vision needs: No Questionnaire PHQ-9 Over the last 2 weeks, how often have you been bothered by any of the following problems? 1. Little interest or pleasure in doing things: not at all 2. Feeling down, depressed, or hopeless: not at all 3. Trouble falling or staying asleep, or sleeping too much: nearly every day (staying asleep ) 4. Feeling tired or having little energy: not at all 5. Poor appetite or overeating: not at all 6. Feeling bad about yourself - or that you are a failure or have let yourself or your family down: not at all 7. Trouble concentrating on things, such as reading the newspaper or watching television: not at all 8. Moving or speaking so slowly that other people could have noticed. Or the opposite - being so fidgety or restless that you have been moving around a lot more than usual: not at all 9. Thoughts that you would be better off or of hurting yourself in some way: not at all Total score: 3 Depression Screening Interpretation: Negative Depression Screening Done: Yes Source: Developed by Drs. Filemon Ni, Estefania Shabazz, Guillermo Mcpherson and colleagues, with an educational sunil from [employer]. Thrive Questionnaire Date Thrive assessed: 06/02/24 I am a: Patient What is your living situation today?: I have a steady place to live Within the past 12 months, did the food you bought not last and you didn't have the money to get more?: Never true Within the past 12 months, did you worry whether your food would run out before you got money to buy more?: Never true Do you have trouble paying for medicines?: No Do you have trouble getting transportation to medical appointments?: No Do you have trouble paying your heating and electricity bill?: No Do you have trouble taking care of your child, family member or friend?: No Do you have trouble with day-to-day activities such as bathing, preparing meals, shopping, managing finances, etc.?: No Are you currently unemployed and looking for a job?: Yes Are you interested in more education?: No THRIVE Score: 0 AUDIT C Alcohol Use Questionnaire (AUDIT-C) 1. How often do you have a drink containing alcohol?: Never Total Score: 0 MARY-7 AMB Questionnaire MARY-7 Date MARY - 7 assessed: 08/31/23 Source: Developed by Drs. Filemon Ni, Estefania Shabazz, Guillermo Mcpherson and colleagues, with an educational sunil from [employer]. Review of Systems Const Denies poor appetite and Denies weakness Eyes Denies no additional complaints ENT Reports Normal hearing present, Denies dizziness, Denies nasal congestion, Denies tinnitus and Denies sore throat Card Denies chest pain, Denies syncope, Denies rapid heart rate and Denies dyspnea Resp Denies cough and Denies dyspnea GI Denies change in stool character, Reports constipation, Denies diarrhea, Denies nausea and Denies vomiting Denies dysuria and Denies urinary frequency Neuro Reports Normal hearing present, Denies confusion, Denies dizziness, Denies syncope and Denies weakness Psych Denies confusion Physical exam (Primary Care) Vital Signs: Last Vital Signs Pulse 87 06/02/24 14:17 BP 144/68 H 06/02/24 14:17 Pulse Ox 93 06/02/24 14:17 Oxygen Delivery Method Room Air 06/02/24 14:17 BMI result Body Mass Index 30.2 Tobacco/Smoking Status: Tobacco use Status Tobacco use date assessed 11/19/23 06/02/24 14:25 Patient Tobacco Use Status Never used Tobacco 06/02/24 14:25 Tobacco use type Cigarette 06/02/24 14:25 e-Cigarette/Vaping Use Never Used 06/02/24 14:25 PHQ-9: PHQ-9 Score PHQ-9: Total score 3 06/02/24 14:35 Depression Screening Interpretation: Negative Thrive Assessment: Date of Thrive Assessment Date Thrive assessed 06/02/24 06/02/24 14:25 Const General: No confusion Orientation/consciousness: No confusion HENMT Head: Yes normocephalic Ears: external ears normal and TM's normal bilaterally Face and sinus: Yes normal facial exam Mouth: moist mucous membranes Throat: Yes tonsils normal Eyes Conjunctivae: conjunctivae normal Pupils: Equal, round and reactive pupils present and Pupil accommodation reflex normal Direct Ophthalmoscopy: normal light reflex Neck Neck: No lymphadenopathy Thyroid: Thyroid normal Chest Chest palpation & inspection: normal inspection of the chest Resp Effort & Inspection: normal respiratory effort and no audible wheezes Auscultation: clear to auscultation bilaterally, no crackles, no wheezes and lung sounds not diminished Cardio Rate: regular rate Rhythm: regular rhythm Peripheral pulses: radial pulses present and dorsalis pedis present GI Palpation (GI): no masses Auscultation: normal bowel sounds and normoactive bowel sounds Rectal Exam - Male: Yes deferred Skin General skin exam: no rashes or lesions noted Rashes: no rashes Neuro General: No confusion Cranial nerves: Yes Equal, round and reactive pupils present and Yes Normal hearing present Cognition (Neuro): normal cognition Gait exam (Neuro): Normal gait present Motor exam (neuro): 5/5 motor strength present throughout Deep tendon reflexes (DTR's): Right brachioradialis reflex intensity grade: 2+, Left brachioradialis reflex intensity grade: 2+, Right patellar reflex intensity grade: 2+ and Left patellar reflex intensity grade: 2+ Extrem General: No edema Coding Level of Care Code Est Pt Prev Care >65y(87576) Diagnoses Type 2 diabetes mellitus with hyperglycemia, without long-term current use of insulin E11.65 Diabetes mellitus supervisor intermediates insulin use: without supervisor intermediates use Gastroesophageal reflux disease without esophagitis K21.9 Esophagitis presence: without esophagitis Pure hypercholesterolemia E78.00 Hyperlipidemia type: pure hypercholesterolemia Primary hypertension I10 Hypertension type: primary hypertension Deep vein thrombosis (DVT) of lower extremity, unspecified chronicity, unspecified laterality, unspecified vein I82.409 DVT location: lower extremity Affected thrombotic vein of extremity: unspecified vein of extremity Chronicity: unspecified Laterality: unspecified laterality Renal insufficiency N28.9 Primary insomnia F51.01 Insomnia type: primary Assessment & Plan Assessment & Plan (1) Type 2 diabetes mellitus with hyperglycemia: Code(s): E11.65 - Type 2 diabetes mellitus with hyperglycemia Category: Medical Qualifiers: Diabetes mellitus supervisor intermediates insulin use: without supervisor intermediates use Qualified Code(s): E11.65 - Type 2 diabetes mellitus with hyperglycemia Plan: Decrease the amount of carbohydrate intake, pasta, bread, rice and potatoes are all sugar and that is aside from all the sweet stuff, remember that fruits are good but they are Sweet also. Hemoglobin A1c goal of less than 7.0 patient on metformin 500 mg once a day (2) GERD (gastroesophageal reflux disease): Code(s): K21.9 - Gastro-esophageal reflux disease without esophagitis Category: Medical Qualifiers: Esophagitis presence: without esophagitis Qualified Code(s): K21.9 - Gastro-esophageal reflux disease without esophagitis Plan: Avoid the foods that causes that usually spicy foods, tomato products, juices, coffee, soda and foods that your sensitive to. After eating do not lie down, allow 3-4 hours before in lie down. And keep the head of bed above 30 degrees to avoid the acid from going up. (3) Hyperlipidemia: Code(s): E78.5 - Hyperlipidemia, unspecified Category: Medical Qualifiers: Hyperlipidemia type: pure hypercholesterolemia Qualified Code(s): E78.00 - Pure hypercholesterolemia, unspecified Plan: Avoid fried foods, chicken skin, eggs, butter margarine, pastries and meat. Be it pork or beef they have a lot of cholesterol LDL goal of less than 100 and triglyceride of less than 150. (4) Hypertension: Code(s): I10 - Essential (primary) hypertension Category: Medical Qualifiers: Hypertension type: primary hypertension Qualified Code(s): I10 - Essential (primary) hypertension Plan: Continue with blood pressure medication. Decrease salt intake and exercise patient is on amlodipine 5 mg once a day (5) DVT (deep venous thrombosis): Comment: October 2022 ultrasound February 2023 resolved Code(s): I82.409 - Acute embolism and thrombosis of unspecified deep veins of unspecified lower extremity Category: Medical Qualifiers: DVT location: lower extremity Affected thrombotic vein of extremity: unspecified vein of extremity Chronicity: unspecified Laterality: unspecified laterality Qualified Code(s): I82.409 - Acute embolism and thrombosis of unspecified deep veins of unspecified lower extremity Plan: DVT resolved and was advised by hematology oncology to discontinue anticoagulation but with the new new diagnosis of atrial fibrillation (I do not have any record of atrial fibrillation) (6) Renal insufficiency: Code(s): N28.9 - Disorder of kidney and ureter, unspecified Category: Medical Plan: Continuing to monitor. ADVISED TO avoid NSAID. declined renal function (7) Insomnia: Code(s): G47.00 - Insomnia, unspecified Category: Medical Qualifiers: Insomnia type: primary Qualified Code(s): F51.01 - Primary insomnia Plan: sleeping med prescribed but discussed lengthily regarding fabricio effects. fall and fracture are concern Orders: Orders Hemoglobin A1c 3 Months E11.65 - Type 2 diabetes mellitus with hyperglycemia Free T4 (Free Thyroxine) 3 Months . - Type 2 diabetes mellitus with hyperglycemia Thyroid Stimulating Hormone 3 Months E11 - Type 2 diabetes mellitus with hyperglycemia Comprehensive Met. Panel 3 Months - Type 2 diabetes mellitus with hyperglycemia Lipid Panel 3 Months E11. - Type 2 diabetes mellitus with hyperglycemia, E78.00 - Pure hypercholesterolemia, unspecified Medications: Changed From zolpidem (Ambien) 5 mg PO BEDTIME PRN 25 tabs 0RF sleep G47.00 - Insomnia, unspecified To zolpidem 10 mg PO BEDTIME PRN 25 tabs 0RF sleep G47.00 - Insomnia, unspecified
== END 2024-06-02 14:57 | disposition home or self-care (01) ==
PROVIDERS: PCP Internal Medicine; Visit Provider Internal Medicine
DX: E11.65 Type 2 diabetes mellitus with hyperglycemia (principal); I82.409 Acute embolism and thrombosis of unspecified deep veins of unspecified lower extremity; K21.9 Gastro-esophageal reflux disease without esophagitis; E78.00 Pure hypercholesterolemia, unspecified; I10 Essential (primary) hypertension; N28.9 Disorder of kidney and ureter, unspecified; F51.01 Primary insomnia

== ENCOUNTER → 2024-06-02 14:15 | Outpatient (BNVA) | payer MEDICARE, SELFPAY | PROVIDERS: PCP Internal Medicine; Visit Provider Internal Medicine | DX: E11.65 Type 2 diabetes mellitus with hyperglycemia (principal); K21.9 Gastro-esophageal reflux disease without esophagitis; E78.00 Pure hypercholesterolemia, unspecified; I10 Essential (primary) hypertension; N28.9 Disorder of kidney and ureter, unspecified; F51.01 Primary insomnia; Z86.718 Personal history of other venous thrombosis and embolism | CPT/HCPCS: 96127; 99212 ==

== ENCOUNTER 2024-09-14 13:45 | Outpatient (REF) | payer MEDICARE, SELFPAY ==
[2024-09-14 14:18] LABS: Estimated Average Glucose 137 mg/dL; Hemoglobin A1C 198.3265 umol/L; Hemoglobin A1c % 6.4 % (<6.0); Total Hemoglobin (HGBA1C) 4235.4732 umol/L
[2024-09-14 14:41] LABS: Alanine Aminotransferase 18 U/L (0-40); Albumin Level 4.3 g/dL (3.5-5.0); Alkaline Phosphatase 60 U/L (39-117); Anion Gap 10 (12-20); Aspartate Amino Transferase 27 U/L (5-37); Bilirubin Total 0.8 mg/dL (0.0-1.0); Blood Urea Nitrogen 20 mg/dL (9-16); Calcium 8.9 mg/dL (8.4-10.2); Carbon Dioxide 26 mmol/L (22-29); Chloride 108 mmol/L (96-108); Cholesterol 254 mg/dL (<200); Estimated Glomerular Filt Rate 46; Glucose Random 139 mg/dL (60-115); HDL Cholesterol 59 mg/dL (>40); LDL Cholesterol Calculated 162 mg/dL (<100); Potassium 4.4 mmol/L (3.3-5.1); Sodium 140 mmol/L (135-145); Total Protein 7.7 g/dL (6.5-8.0); Triglycerides 169 mg/dL (<150)
[2024-09-14 14:55] LABS: Free T4 (Free Thyroxine) 0.96 ng/dL (0.71-1.85); Thyroid Stimulating Hormone 5.32 uIU/mL (0.32-4.0)
== END 2024-09-14 13:46 | disposition home or self-care (01) ==
LOC: HO.LAB 13:45
PROVIDERS: PCP Internal Medicine; Visit Provider Internal Medicine
DX: E11.65 Type 2 diabetes mellitus with hyperglycemia (principal); E78.00 Pure hypercholesterolemia, unspecified
CPT/HCPCS: 36415; 80053; 80061; 83036; 84439; 84443

== ENCOUNTER 2024-09-18 13:13 | Outpatient (AMB) | payer MEDICARE, SELFPAY ==
--- NOTE | 2024-09-18 13:23 | A.OFFPC_ITS ---
Vital Signs 09/18/24 13:25 Height 5 ft 4 in Weight 174 lb 2 oz BMI 29.9 BP 138/74 Blood Pressure Location Lt brachial Position Sitting Pulse 91 Pulse Source Pulse Oximeter Temp 97.3 F Temp Source Skin Pulse Oximetry (%) 97 Oxygen Delivery Method Room Air Intake Visit Reasons: HTN, DM, cholesterol Intake Note: Patient is here to follow up on HTN, DM, Cholesterol and lab results. Pt decline flu shot today. [employer] Required: No Cafe Associate: Not Required per policy Accompanied by: Self / Same As Patient Allergies No Known Allergies Allergy (Verified 09/18/24 13:24) Tobacco use date assessed: 09/18/24 Fall risk assessment: No Falls in past year Last assessed Fall Risk: 09/18/24 Dental Screening Dental Screen Date: 09/18/24 Did you have a dental visit in the last 12 months?: Yes Did you have a dental problem in the last 6 months where you did not have access to dental care?: No Was dental information given to patient?: Patient has dentist HPI HTN, DM, cholesterol HPI Details The patient is an 84-year-old male presenting with a follow-up visit to discuss ongoing management of chronic conditions including hypertension, type 2 diabetes mellitus, chronic kidney disease, hypercholesterolemia, and thyroid disorder. Hypertension has been managed with amlodipine and lisinopril at low doses, yet blood pressure readings often reach 151-155 mmHg. Blood pressure monitoring was advised to be conducted after resting due to high variability. The patient's diabetes mellitus is controlled with a recent Hemoglobin A1c of 6.4, consistent with previous measurements. Chronic kidney disease was noted with elevated creatinine levels since November 2023, with recent levels at 1.47 mg/dL. The patient has not previously consulted nephrology. Hypercholesterolemia management has been challenging; cholesterol levels increased from 241 to 254 mg/dL. The patient was previously on a non- specified cholesterol medication and is hesitant to begin statins due to familial adverse effects. Thyroid levels show persistent mild elevation, with a TSH of 5.32, reflecting minor improvement. [facility] Medical History (Updated 09/18/24 @ 13:41 by Mike Gonzalez MD) GERD (gastroesophageal reflux disease) Type 2 diabetes mellitus Venous thromboembolism (VTE) DVT (deep venous thrombosis) Surgical History (Updated 09/18/24 @ 13:28 by ELEAZAR Scott) No pertinent past surgical history Family History Father No problems noted. Mother No problems noted. Brother Diabetes Social History Household Members: None Housing: House Do you presently have visiting nurse or other home services: No Alcohol intake: current Alcohol intake frequency: a few times a month Alcohol type: hard liquor Comment: 1 shot of alcohol a day Patient Tobacco Use Status: Never used Tobacco Tobacco use type: Cigarette e-Cigarette/Vaping Use: Never Used Second Hand Smoke Exposure: No service: Yes Current occupational status: retired Cognitive needs: No Hearing needs: No Vision needs: No Questionnaire PHQ-9 Over the last 2 weeks, how often have you been bothered by any of the following problems? 1. Little interest or pleasure in doing things: not at all 2. Feeling down, depressed, or hopeless: not at all 3. Trouble falling or staying asleep, or sleeping too much: not at all 4. Feeling tired or having little energy: not at all 5. Poor appetite or overeating: not at all 6. Feeling bad about yourself - or that you are a failure or have let yourself or your family down: not at all 7. Trouble concentrating on things, such as reading the newspaper or watching television: not at all 8. Moving or speaking so slowly that other people could have noticed. Or the opposite - being so fidgety or restless that you have been moving around a lot more than usual: not at all 9. Thoughts that you would be better off or of hurting yourself in some way: not at all Total score: 0 Depression Screening Interpretation: Negative Depression Screening Done: Yes Source: Developed by Drs. Filemon Ni, Estefania Shabazz, Guillermo Mcpherson and colleagues, with an educational sunil from [employer]. Thrive Questionnaire Date Thrive assessed: 09/18/24 I am a: Patient What is your living situation today?: I have a steady place to live Within the past 12 months, did the food you bought not last and you didn't have the money to get more?: Never true Within the past 12 months, did you worry whether your food would run out before you got money to buy more?: Never true Do you have trouble paying for medicines?: No Do you have trouble getting transportation to medical appointments?: No Do you have trouble paying your heating and electricity bill?: No Do you have trouble taking care of your child, family member or friend?: No Do you have trouble with day-to-day activities such as bathing, preparing meals, shopping, managing finances, etc.?: No Are you currently unemployed and looking for a job?: No Are you interested in more education?: No Please select the resources that you would like help with: None Currently or been in a relationship where the following occur: No concerns reported THRIVE Score: 0 AUDIT C Alcohol Use Questionnaire (AUDIT-C) 1. How often do you have a drink containing alcohol?: Never Total Score: 0 MARY-7 AMB Questionnaire MARY-7 Date MARY - 7 assessed: 09/18/24 Feeling nervous, anxious, or on edge: 0 = Not at all Not being able to stop or control worryin = Not at all Worrying too much about different things: 0 = Not at all Trouble relaxin = Not at all Being so restless that it is hard to sit still: 0 = Not at all Becoming easily annoyed or irritable: 0 = Not at all Feeling afraid as if something awful might happen: 0 = Not at all Total MARY-7 score (0-4 normal; 5-9 mild; 10-14 moderate; 15-21 severe): 0 Source: Developed by Drs. Filemon Ni, Estefania Shabazz, Guillermo Mcpherson and colleagues, with an educational sunil from [employer]. Physical exam (Primary Care) Tobacco/Smoking Status: Tobacco use Status Tobacco use date assessed 11/19/23 09/18/24 13:23 Patient Tobacco Use Status Never used Tobacco 09/18/24 13:23 Tobacco use type Cigarette 09/18/24 13:23 e-Cigarette/Vaping Use Never Used 09/18/24 13:23 Depression Screening Interpretation: Negative Thrive Assessment: Date of Thrive Assessment Date Thrive assessed 06/02/24 09/18/24 13:23 Currently or been in a relationship where the following occur: No concerns reported Const General: alert; No acute distress Eyes Conjunctivae: conjunctivae normal Resp Auscultation: clear to auscultation bilaterally Cardio Rate: regular rate Rhythm: regular rhythm GI Inspection: Yes normal to inspection Extrem General: Yes normal to inspection and No edema Coding Level of Care Code Est Pt Level 4 (22382) Complex EM visit Add On G2211 Diagnoses Type 2 diabetes mellitus with hyperglycemia, without long-term current use of insulin E11.65 Diabetes mellitus continuous churn buttermaker insulin use: without penitentiary use Pure hypercholesterolemia E78.00 Hyperlipidemia type: pure hypercholesterolemia Primary hypertension I10 Hypertension type: primary hypertension Obesity (BMI 30-39.9) E66.9 Renal insufficiency N28.9 TSH elevation R79.89 Assessment & Plan Assessment & Plan (1) Type 2 diabetes mellitus with hyperglycemia: Comment: [facility] [place] [facility] Code(s): E11.65 - Type 2 diabetes mellitus with hyperglycemia Category: Medical Qualifiers: Diabetes mellitus continuous churn buttermaker insulin use: without continuous churn buttermaker use Qualified Code(s): E11.65 - Type 2 diabetes mellitus with hyperglycemia (2) Hyperlipidemia: Code(s): E78.5 - Hyperlipidemia, unspecified Category: Medical Qualifiers: Hyperlipidemia type: pure hypercholesterolemia Qualified Code(s): E78.00 - Pure hypercholesterolemia, unspecified Plan: declined statins despite elevatd cholesterol (3) Hypertension: Code(s): I10 - Essential (primary) hypertension Category: Medical Qualifiers: Hypertension type: primary hypertension Qualified Code(s): I10 - Essential (primary) hypertension (4) Obesity (BMI 30-39.9): Code(s): E66.9 - Obesity, unspecified Category: Medical (5) Renal insufficiency: Code(s): N28.9 - Disorder of kidney and ureter, unspecified Category: Medical (6) TSH elevation: Code(s): R79.89 - Other specified abnormal findings of blood chemistry Category: Medical Plan 1. - Encourage monitoring of kidney function, avoidance of nephrotoxic agents, and possible nephrology consultation due to chronic kidney disease: - Initiate trials of non-statin cholesterol-lowering therapy due to hypercholesterolemia, closely monitoring lipid levels and adverse reactions. - Continuous monitoring of thyroid levels, considering adjustments to management based on TSH changes. - Reinforce the importance of lifestyle modifications, including dietary changes, for management of hyperlipidemia and overall cardiovascular risk minimization. - Follow-up on blood work in three months to assess creatinine, cholesterol, glucose levels, and thyroid function. - Continue current sleep aids for insomnia management noting challenges with sleep latency; assess efficacy and adjust as needed. Orders: Orders Hemoglobin A1c 3 Months E11.65 - Type 2 diabetes mellitus with hyperglycemia Lipid Panel 3 Months E78.00 - Pure hypercholesterolemia, unspecified Thyroid Stimulating Hormone 3 Months R79.89 - Other specified abnormal findings of blood chemistry Free T4 (Free Thyroxine) 3 Months R7.89 - Other specified abnormal findings of blood chemistry Comprehensive Met. Panel 3 Months - Type 2 diabetes mellitus with hyperglycemia Complete Blood Count Auto Diff 3 Months . - Type 2 diabetes mellitus with hyperglycemia Medications: New ezetimibe (Zetia) 10 mg PO DAILY 90 tabs 3RF E78.00 - Pure hypercholesterolemia, unspecified Refilled dexlansoprazole (Dexilant) 60 mg PO DAILY 90 caps 3RF K21.9 - Gastro- esophageal reflux disease without esophagitis
[2024-09-18 13:25] VITALS: BP 138/74; PULSE 91; TEMP 36.3; O2SAT 97; BMI 29.9
== END 2024-09-18 13:45 | disposition home or self-care (01) ==
PROVIDERS: PCP Internal Medicine; Visit Provider Internal Medicine
DX: E11.65 Type 2 diabetes mellitus with hyperglycemia (principal); E78.00 Pure hypercholesterolemia, unspecified; E66.9 Obesity, unspecified; Z68.29 Body mass index [BMI] 29.0-29.9, adult; I10 Essential (primary) hypertension; R79.89 Other specified abnormal findings of blood chemistry; N28.9 Disorder of kidney and ureter, unspecified

== ENCOUNTER → 2024-09-18 13:13 | Outpatient (BNVA) | payer MEDICARE, SELFPAY | PROVIDERS: PCP Internal Medicine; Visit Provider Internal Medicine | DX: E11.65 Type 2 diabetes mellitus with hyperglycemia (principal); E78.00 Pure hypercholesterolemia, unspecified; I10 Essential (primary) hypertension; E66.9 Obesity, unspecified; N28.9 Disorder of kidney and ureter, unspecified; R79.89 Other specified abnormal findings of blood chemistry | CPT/HCPCS: 99212 ==

== ENCOUNTER 2025-01-23 13:35 | Outpatient (REF) | payer MEDICARE, SELFPAY ==
[2025-01-23 13:43] LABS: MANUAL DIFF FLAG NO
[2025-01-23 14:47] LABS: Basophils Absolute Auto 0.1 X10*3/uL (0.0-0.2); Basophils Percent Auto 1.1 % (0-2); Eosinophils Absolute Auto 0.4 X10*3/uL (0.0-0.4); Eosinophils Percent Auto 4.7 % (0-4); Hemoglobin 15.4 g/dl (14.0-18.0); Imm Gran Abs Auto 0.03 X10*3/uL (0.00-0.03); Imm Gran Pct Auto 0.3 % (0.0-0.4); Lymphocytes Absolute Auto 3.4 X10*3/uL (1.2-4.9); Lymphocytes Percent Auto 37.6 % (20-40); Mean Corpuscular HGB Conc 34.2 g/dl (31.0-36.0); Mean Corpuscular Hemoglobin 30.3 pg (27.0-33.0); Mean Corpuscular Volume 88.6 fL (80.0-98.0); Mean Platelet Volume 10.1 fL (9.4-12.4); Monocytes Absolute Auto 0.8 X10*3/uL (0.1-1.2); Monocytes Percent Auto 9.3 % (2-11); Neutrophils Absolute Auto 4.2 x10*3/uL (2.0-8.3); Platelet Count 243 X10*3/uL (160-400); Red Blood Count 5.08 X10*6/uL (4.60-5.80); Red Cell Distribution Width 13.2 % (11.0-16.0); White Blood Count 8.9 X10*3/uL (4.8-10.8)
[2025-01-23 14:57] LABS: Estimated Average Glucose 143 mg/dL; Hemoglobin A1c % 6.6 % (<6.0)
[2025-01-23 16:19] LABS: Alanine Aminotransferase 18 U/L (0-40); Albumin Level 4.4 g/dL (3.5-5.0); Alkaline Phosphatase 60 U/L (39-117); Anion Gap 13 (12-20); Aspartate Amino Transferase 28 U/L (5-37); Bilirubin Total 0.9 mg/dL (0.0-1.0); Blood Urea Nitrogen 22 mg/dL (9-16); Calcium 9.7 mg/dL (8.4-10.2); Carbon Dioxide 24 mmol/L (22-29); Chloride 106 mmol/L (96-108); Cholesterol 217 mg/dL (<200); Estimated Glomerular Filt Rate 48; Glucose Random 121 mg/dL (60-115); HDL Cholesterol 62 mg/dL (>40); LDL Cholesterol Calculated 123 mg/dL (<100); Potassium 4.4 mmol/L (3.3-5.1); Sodium 139 mmol/L (135-145); Total Protein 7.1 g/dL (6.5-8.0); Triglycerides 160 mg/dL (<150)
[2025-01-23 16:39] LABS: Free T4 (Free Thyroxine) 0.86 ng/dL (0.71-1.85); Thyroid Stimulating Hormone 3.88 uIU/mL (0.32-4.0)
== END 2025-01-23 13:36 | disposition home or self-care (01) ==
LOC: HO.LAB 13:35
PROVIDERS: PCP Internal Medicine; Visit Provider Internal Medicine
DX: E11.65 Type 2 diabetes mellitus with hyperglycemia (principal); E78.00 Pure hypercholesterolemia, unspecified; R79.89 Other specified abnormal findings of blood chemistry
CPT/HCPCS: 36415; 80053; 80061; 83036; 84439; 84443; 85025

== ENCOUNTER 2025-01-29 13:41 | Outpatient (AMB) | payer MEDICARE, SELFPAY ==
[2025-01-29 13:49] VITALS: BP 146/68; PULSE 94; O2SAT 95; BMI 30.6
--- NOTE | 2025-01-29 13:49 | A.OFFPC_ITS ---
Vital Signs 01/29/25 13:49 Height 5 ft 4 in Weight 178 lb BMI 30.6 BP 146/68 H Blood Pressure Location Lt brachial Position Sitting Pulse 94 Pulse Source Pulse Oximeter Pulse Oximetry (%) 95 Oxygen Delivery Method Room Air Intake Visit Reasons: annual exam - see comments Allergies No Known Allergies Allergy (Verified 01/29/25 13:49) Medication List - Last Reconciled 01/29/25 by Mike Gonzalez MD amlodipine 5 mg See Protocol PO DAILY apixaban (Eliquis) 5 mg PO BID 90 days ezetimibe (Zetia) 10 mg PO DAILY [flax seed PO] lisinopril 20 mg PO DAILY metformin 500 mg PO DAILY multivitamin 1 tab PO DAILY omega 2-wrk-jjq-fish oil 60-90-500 mg (Fish Oil) 1 cap PO DAILY pantoprazole 40 mg PO DAILY zolpidem 10 mg PO BEDTIME PRN Tobacco use date assessed: 09/18/24 Fall risk assessment: No Falls in past year Last assessed Fall Risk: 01/29/25 Dental Screening Dental Screen Date: 01/29/25 Did you have a dental visit in the last 12 months?: Yes Did you have a dental problem in the last 6 months where you did not have access to dental care?: No Was dental information given to patient?: Patient has dentist [facility] Medical History (Updated 09/18/24 @ 13:41 by Mike Gonzalez MD) GERD (gastroesophageal reflux disease) Type 2 diabetes mellitus Venous thromboembolism (VTE) DVT (deep venous thrombosis) Surgical History (Updated 09/18/24 @ 13:28 by ELEAZAR Scott) No pertinent past surgical history Family History Father No problems noted. Mother No problems noted. Brother Diabetes Social History (Updated 09/18/24 @ 13:29 by ELEAZAR Scott) Household Members: None Housing: House Do you presently have visiting nurse or other home services: No Alcohol intake: current Alcohol intake frequency: a few times a month Alcohol type: hard liquor Comment: 1 shot of alcohol a day Patient Tobacco Use Status: Never used Tobacco Tobacco use type: Cigarette e-Cigarette/Vaping Use: Never Used Second Hand Smoke Exposure: No service: Yes Current occupational status: retired Cognitive needs: No Hearing needs: No Vision needs: Yes Questionnaire PHQ-9 Over the last 2 weeks, how often have you been bothered by any of the following problems? 1. Little interest or pleasure in doing things: not at all 2. Feeling down, depressed, or hopeless: not at all 3. Trouble falling or staying asleep, or sleeping too much: not at all 4. Feeling tired or having little energy: not at all 5. Poor appetite or overeating: not at all 6. Feeling bad about yourself - or that you are a failure or have let yourself or your family down: not at all 7. Trouble concentrating on things, such as reading the newspaper or watching television: not at all 8. Moving or speaking so slowly that other people could have noticed. Or the opposite - being so fidgety or restless that you have been moving around a lot more than usual: not at all 9. Thoughts that you would be better off or of hurting yourself in some way: not at all Total score: 0 Depression Screening Interpretation: Negative Depression Screening Done: Yes 42789 - PHQ-9 Billing: Yes Source: Developed by Drs. Filemon Ni, Estefania Shabazz, Guillermo Mcpherson and colleagues, with an educational sunil from [employer]. Thrive Questionnaire Date Thrive assessed: 09/18/24 AUDIT C Alcohol Use Questionnaire (AUDIT-C) 1. How often do you have a drink containing alcohol?: Never Total Score: 0 MARY-7 AMB Questionnaire MARY-7 Date MARY - 7 assessed: 01/29/25 Feeling nervous, anxious, or on edge: 0 = Not at all Not being able to stop or control worryin = Not at all Worrying too much about different things: 0 = Not at all Trouble relaxin = Not at all Being so restless that it is hard to sit still: 0 = Not at all Becoming easily annoyed or irritable: 0 = Not at all Feeling afraid as if something awful might happen: 0 = Not at all Total MARY-7 score (0-4 normal; 5-9 mild; 10-14 moderate; 15-21 severe): 0 Source: Developed by Drs. Filemon Ni, Guillermo Bob and colleagues, with an educational sunil from [employer]. MARY-7 Assessment Billing MARY-7 Assessment Tool: MARY-7 Assessment 83006 Physical exam (Primary Care) Vital Signs: Last Vital Signs Pulse 94 01/29/25 13:49 BP 146/68 H 01/29/25 13:49 Pulse Ox 95 01/29/25 13:49 Oxygen Delivery Method Room Air 01/29/25 13:49 BMI result Body Mass Index 30.6 Tobacco/Smoking Status: Tobacco use Status Tobacco use date assessed 09/18/24 01/29/25 13:50 Patient Tobacco Use Status Never used Tobacco 01/29/25 13:50 Tobacco use type Cigarette 01/29/25 13:50 e-Cigarette/Vaping Use Never Used 01/29/25 13:50 PHQ-9: PHQ-9 Score PHQ-9: Total score 0 01/29/25 14:15 Depression Screening Interpretation: Negative Thrive Assessment: Date of Thrive Assessment Date Thrive assessed 09/18/24 01/29/25 13:50 Const General: alert; No acute distress Eyes Conjunctivae: conjunctivae normal Resp Auscultation: clear to auscultation bilaterally Cardio Rate: regular rate Rhythm: regular rhythm GI Inspection: Yes normal to inspection Extrem General: Yes normal to inspection and No edema Coding Level of Care Code Est Pt Level 4 (97229) Complex EM visit Add On G2211 Diagnoses Obesity (BMI 30-39.9) E66.9 Type 2 diabetes mellitus with hyperglycemia, without long-term current use of insulin E11.65 Diabetes mellitus buttermaker continuous churn insulin use: without chcf use Gastroesophageal reflux disease without esophagitis K21.9 Esophagitis presence: without esophagitis Primary hypertension I10 Hypertension type: primary hypertension Pure hypercholesterolemia E78.00 Hyperlipidemia type: pure hypercholesterolemia Deep vein thrombosis (DVT) of lower extremity, unspecified chronicity, unspecified laterality, unspecified vein I82.409 Affected thrombotic vein of extremity: unspecified vein of extremity Chronicity: unspecified DVT location: lower extremity Laterality: unspecified laterality Pulmonary embolism I26.99 Additional Codes MARY-7 Assessment Billing - MARY-7 Assessment Tool: MARY-7 Assessment 38958 ([id number]) PHQ-9 - 68070 - PHQ-9 Billing: Yes ([id number]) Assessment & Plan Assessment & Plan (1) Obesity (BMI 30-39.9): Code(s): E66.9 - Obesity, unspecified Category: Medical Plan: Diet and exercise (2) Type 2 diabetes mellitus with hyperglycemia: Comment: [facility] Code(s): E11.65 - Type 2 diabetes mellitus with hyperglycemia Category: Medical Qualifiers: Diabetes mellitus buttermaker continuous churn insulin use: without chcf use Qualified Code(s): E11.65 - Type 2 diabetes mellitus with hyperglycemia Plan: Decrease the amount of carbohydrate intake, pasta, bread, rice and potatoes are all sugar and that is aside from all the sweet stuff, remember that fruits are good but they are Sweet also. Hemoglobin A1c goal of less than 7.0 patient on metformin 500 mg once a day (3) GERD (gastroesophageal reflux disease): Code(s): K21.9 - Gastro-esophageal reflux disease without esophagitis Category: Medical Qualifiers: Esophagitis presence: without esophagitis Qualified Code(s): K21.9 - Gastro-esophageal reflux disease without esophagitis Plan: Avoid the foods that causes that usually spicy foods, tomato products, juices, coffee, soda and foods that your sensitive to. After eating do not lie down, allow 3-4 hours before in lie down. And keep the head of bed above 30 degrees to avoid the acid from going up. (4) Hypertension: Code(s): I10 - Essential (primary) hypertension Category: Medical Qualifiers: Hypertension type: primary hypertension Qualified Code(s): I10 - Essential (primary) hypertension Plan: Continue with blood pressure medication. Decrease salt intake and exercise on amlodipine 5 mg once a day lisinopril 10 mg once a day (5) Hyperlipidemia: Code(s): E78.5 - Hyperlipidemia, unspecified Category: Medical Qualifiers: Hyperlipidemia type: pure hypercholesterolemia Qualified Code(s): E78.00 - Pure hypercholesterolemia, unspecified Plan: Avoid fried foods, chicken skin, eggs, butter margarine, pastries and meat. Be it pork or beef they have a lot of cholesterol LDL goal of less than 100 and triglyceride of less than 150 patient on Zetia. decline statins (6) DVT (deep venous thrombosis): Comment: October 2022 ultrasound February 2023 resolved Code(s): I82.409 - Acute embolism and thrombosis of unspecified deep veins of unspecified lower extremity Category: Medical Qualifiers: Affected thrombotic vein of extremity: unspecified vein of extremity Chronicity: unspecified DVT location: lower extremity Laterality: unspecified laterality Qualified Code(s): I82.409 - Acute embolism and thrombosis of unspecified deep veins of unspecified lower extremity Plan: Patient on the blood thinner (7) Pulmonary embolism: Code(s): I26.99 - Other pulmonary embolism without acute cor pulmonale Category: Medical Plan: Continuing with the blood thinner Plan History of Present Illness The patient is an 84-year-old male presenting for a follow-up on chronic conditions such as essential hypertension, type 2 diabetes mellitus, gastroesophageal reflux disease, and hyperlipidemia. He has a significant past medical history that includes pulmonary embolism and deep vein thrombosis from 2022. Current management includes blood thinners, amlodipine, lisinopril for hypertension, metformin for diabetes, and Zetia for cholesterol management. The patient reports an issue with weight gain and sedentariness, discussing physical activity as a potential ameliorative approach. Further, he is managing his cholesterol levels actively without the use of statin medications due to prior adverse effects. Health Maintenance - Blood pressure monitoring at home; target is less than 130/80 mmHg. - Dietary modifications and exercise increase discussed to aid weight control and cholesterol management. - Cholesterol levels checked in December; LDL at 123 mg/dL (elevated). - Hemoglobin A1c at 6.6% with a target of less than 7.0%. - Fasting glucose at 121 mg/dL. - Annual review of medications, continuation of blood thinner for historical DVT and pulmonary embolism prevention. Social History - Reports a sedentary lifestyle with recent weight gain of 4 pounds. - Acknowledges the need to increase physical activity, specifically through walking or running. Review of Systems - Cardiovascular: Reports occasional elevated blood pressure readings. - Endocrine: Reports stable diabetes management, mild elevation in blood glucose levels. - Gastrointestinal: No new symptoms reported for GERD. - Neurological: Denies any neurological symptoms or changes. Physical Exam - Vitals- Elevated blood pressure noted at 147/unknown. - Weight- Increased by 4 pounds since the last visit. Results - Labs: Normal blood count; normal liver function; elevated LDL at 123 mg/dL; normal thyroid function test; urine protein within normal limits. - Hematology: Hemoglobin A1c measured at 6.6%. - Chemistry: Fasting glucose recorded at 121 mg/dL. - Kidney Function: Improved creatinine from 1.47 to 1.4. Plan 1. 0%. Management of hyperlipidemia continues through diet and exercise as the patient is unable to tolerate statins. LDL levels will be reassessed in six mon ths. The patient will increase physical activity to aid in weight control and cardiovascular health.: Patient was informed and verbally consented to the use of an ambient scribe for clinic note documentation during this visit. Discussion Notes I explained the importance of controlling blood pressure and the decision to increase lisinopril dosage to 20 mg daily. We discussed achieving diabetes goals by maintaining the current regimen of metformin. I addressed the dietary and physical activity modifications needed due to the slight increase in LDL. The patient opted not to start statins and consented to a more active lifestyle to help manage hyperlipidemia. We planned for a follow-up cholesterol panel in six months and discussed the need for home blood pressure monitoring. All management options, including benefits and risks, were discussed thoroughly, and the patient understood and agreed to the plan. Patient Instructions - Continue with amlodipine 5 mg daily. - Increase lisinopril to 20 mg daily. - Maintain current regimen of metformin 500 mg once daily. - Monitor blood pressure at home; aim for under 130/80 mmHg. - Engage in regular physical activity to assist with weight loss. - Follow a cholesterol-friendly diet. - Return for cholesterol re-evaluation in six months. - Contact the office if there are significant increases in blood pressure or new symptoms arise. Medications: Changed From lisinopril 10 mg PO DAILY 90 tabs 3RF E11.65 - Type 2 diabetes mellitus with hyperglycemia To lisinopril 20 mg PO DAILY 30 tabs 4RF E11.65 - Type 2 diabetes mellitus with hyperglycemia
== END 2025-01-29 15:03 | disposition home or self-care (01) ==
LOC: HO.HMCH 13:41
PROVIDERS: PCP Internal Medicine; Visit Provider Internal Medicine
DX: E11.65 Type 2 diabetes mellitus with hyperglycemia (principal); I82.409 Acute embolism and thrombosis of unspecified deep veins of unspecified lower extremity; I26.99 Other pulmonary embolism without acute cor pulmonale; K21.9 Gastro-esophageal reflux disease without esophagitis; E66.9 Obesity, unspecified; I10 Essential (primary) hypertension; E78.00 Pure hypercholesterolemia, unspecified

== ENCOUNTER → 2025-01-29 13:41 | Outpatient (BNVA) | payer MEDICARE, SELFPAY | PROVIDERS: PCP Internal Medicine; Visit Provider Internal Medicine | DX: E11.65 Type 2 diabetes mellitus with hyperglycemia (principal); E66.9 Obesity, unspecified; K21.9 Gastro-esophageal reflux disease without esophagitis; I10 Essential (primary) hypertension; E78.00 Pure hypercholesterolemia, unspecified; I82.409 Acute embolism and thrombosis of unspecified deep veins of unspecified lower extremity; I26.99 Other pulmonary embolism without acute cor pulmonale | CPT/HCPCS: 96127; 99212 ==

== ENCOUNTER 2025-07-23 11:44 | Outpatient (REF) | payer MEDICARE, SELFPAY ==
[2025-07-23 11:59] LABS: MANUAL DIFF FLAG NO
[2025-07-23 12:27] LABS: Hematocrit 44.7 % (42.0-52.0); Hemoglobin 15.0 g/dl (14.0-18.0); Imm Gran Abs Auto 0.02 X10*3/uL (0.00-0.03); Imm Gran Pct Auto 0.3 % (0.0-0.4); Lymphocytes Absolute Auto 3.3 X10*3/uL (1.2-4.9); Mean Corpuscular HGB Conc 33.6 g/dl (31.0-36.0); Mean Corpuscular Hemoglobin 29.5 pg (27.0-33.0); Mean Corpuscular Volume 87.8 fL (80.0-98.0); NRBC Abs Auto 0.000 X10*3/uL (0.0-0.012); NRBC Pct Auto 0.0 /100WBC (0.0-0.2); Platelet Count 231 X10*3/uL (160-400); Red Blood Count 5.09 X10*6/uL (4.60-5.80); White Blood Count 7.7 X10*3/uL (4.8-10.8)
[2025-07-23 13:10] LABS: Alanine Aminotransferase 21 U/L (0-40); Albumin Level 4.4 g/dL (3.5-5.0); Alkaline Phosphatase 66 U/L (39-117); Anion Gap 12 (12-20); Aspartate Amino Transferase 25 U/L (5-37); Blood Urea Nitrogen 28 mg/dL (9-16); Calcium 9.3 mg/dL (8.4-10.2); Carbon Dioxide 26 mmol/L (22-29); Chloride 106 mmol/L (96-108); Cholesterol 210 mg/dL (<200); Estimated Glomerular Filt Rate 36; HDL Cholesterol 57 mg/dL (>40); Magnesium 2.2 mg/dL (1.6-2.6); Potassium 4.8 mmol/L (3.3-5.1); Sodium 139 mmol/L (135-145); Total Protein 7.2 g/dL (6.5-8.0); Triglycerides 141 mg/dL (<150)
[2025-07-23 13:27] LABS: Free T4 (Free Thyroxine) 0.93 ng/dL (0.71-1.85); Thyroid Stimulating Hormone 6.38 uIU/mL (0.32-4.0)
[2025-07-23 14:28] LABS: Microalbum/Creatinine Ratio Ur 5.9 ug/mg cr (<30)
[2025-07-23 14:52] LABS: Folate 15.7 ng/mL (> or = 4.0); Vitamin B12 554 pg/mL (200-900)
== END 2025-07-23 11:45 | disposition home or self-care (01) ==
LOC: HO.LAB 11:44
PROVIDERS: PCP Internal Medicine; Visit Provider Internal Medicine
DX: E11.65 Type 2 diabetes mellitus with hyperglycemia (principal); E78.00 Pure hypercholesterolemia, unspecified
CPT/HCPCS: 36415; 80053; 80061; 82043; 82570; 82607; 82746; 83036; 83735; 84439; 84443; 85025

== ENCOUNTER 2025-07-24 10:11 | Outpatient (AMB) | payer MEDICARE, SELFPAY ==
[2025-07-24 10:17] VITALS: BP 130/70; PULSE 86; TEMP 36.2; O2SAT 95; BMI 28.9
--- NOTE | 2025-07-24 10:17 | MHC.PC.OV ---
Vital Signs 07/24/25 10:17 Height 5 ft 4 in Weight 168 lb 8 oz BMI 28.9 BP 130/70 Blood Pressure Location Lt brachial Position Sitting Pulse 86 Pulse Source Pulse Oximeter Temp 97.1 F Temp Source Temporal Artery Scan Pulse Oximetry (%) 95 Oxygen Delivery Method Room Air Intake Visit Reasons: DM, HTN, Cholestero Allergies No Known Allergies Allergy (Verified 07/24/25 10:18) Medication List - Last Reconciled 07/24/25 by Mesha Hudson PA-C amlodipine 5 mg See Protocol PO DAILY apixaban 2.5 mg PO BID 90 days ezetimibe (Zetia) 10 mg PO DAILY [flax seed PO] lisinopril 20 mg PO DAILY multivitamin 1 tab PO DAILY omega 4-pvl-hfa-fish oil 60-90-500 mg (Fish Oil) 1 cap PO DAILY pantoprazole 40 mg PO DAILY zolpidem 10 mg PO BEDTIME PRN Tobacco use date assessed: 09/18/24 Fall risk assessment: No Falls in past year Last assessed Fall Risk: 01/29/25 Dental Screening Dental Screen Date: 01/29/25 Did you have a dental visit in the last 12 months?: Yes Did you have a dental problem in the last 6 months where you did not have access to dental care?: No Was dental information given to patient?: Patient has dentist HPI DM, HTN, Cholestero HPI Details 85 year old male with past medical history of DVT, hypertension, insomnia, hyperlipidemia, DM, GERD last seen by Dr. Gonzalez 01/2025 coming in for follow up. Presenting for a follow-up visit to review recent blood work. The patient has a history of type 2 diabetes and has been taking metformin for at least a couple of years. The patient's A1c increased from 6.6% in December to 7.0%. Recent labs showed a significant increase in kidney function numbers, which is not good, and a urine test confirmed the kidneys are under more stress. For hyperlipidemia, the patient's total cholesterol is 210, which is an improvement, and the LDL is 125. The patient is unable to take statins and is on Zetia. [facility] Medical History GERD (gastroesophageal reflux disease) Type 2 diabetes mellitus Venous thromboembolism (VTE) DVT (deep venous thrombosis) Surgical History No pertinent past surgical history Family History Father No problems noted. Mother No problems noted. Brother Diabetes Social History Household Members: None Housing: House Do you presently have visiting nurse or other home services: No Alcohol intake: current Alcohol intake frequency: a few times a month Alcohol type: hard liquor Comment: 1 shot of alcohol a day Patient Tobacco Use Status: Never used Tobacco Tobacco use type: Cigarette e-Cigarette/Vaping Use: Never Used Second Hand Smoke Exposure: No service: Yes Current occupational status: retired Cognitive needs: No Hearing needs: No Vision needs: Yes Questionnaire PHQ-9 Over the last 2 weeks, how often have you been bothered by any of the following problems? 1. Little interest or pleasure in doing things: not at all 2. Feeling down, depressed, or hopeless: not at all 3. Trouble falling or staying asleep, or sleeping too much: not at all 4. Feeling tired or having little energy: not at all 5. Poor appetite or overeating: not at all 6. Feeling bad about yourself - or that you are a failure or have let yourself or your family down: not at all 7. Trouble concentrating on things, such as reading the newspaper or watching television: not at all 8. Moving or speaking so slowly that other people could have noticed. Or the opposite - being so fidgety or restless that you have been moving around a lot more than usual: not at all 9. Thoughts that you would be better off or of hurting yourself in some way: not at all Total score: 0 Depression Screening Interpretation: Negative Depression Screening Done: Yes 82490 - PHQ-9 Billing: Yes Source: Developed by Drs. Filemon Ni, Estefania Shabazz, Guillermo Mcpherson and colleagues, with an educational sunil from [employer]. Thrive Questionnaire Date Thrive assessed: 09/18/24 AUDIT C Alcohol Use Questionnaire (AUDIT-C) 1. How often do you have a drink containing alcohol?: Never Total Score: 0 MARY-7 AMB Questionnaire MARY-7 Date MARY - 7 assessed: 01/29/25 Feeling nervous, anxious, or on edge: 0 = Not at all Not being able to stop or control worryin = Not at all Worrying too much about different things: 0 = Not at all Trouble relaxin = Not at all Being so restless that it is hard to sit still: 0 = Not at all Becoming easily annoyed or irritable: 0 = Not at all Feeling afraid as if something awful might happen: 0 = Not at all Total MARY-7 score (0-4 normal; 5-9 mild; 10-14 moderate; 15-21 severe): 0 Source: Developed by Drs. Filemon Ni, Estefania Shabazz, Guillermo Mcpherson and colleagues, with an educational sunil from [employer]. MARY-7 Assessment Billing MARY-7 Assessment Tool: MARY-7 Assessment 97319 Review of Systems Const Denies body aches, Denies chills, Denies fever(s), Denies headache(s) and Denies poor appetite Eyes Reports no additional complaints ENT Denies dizziness and Denies headache(s) Card Denies chest pain, Denies syncope, Denies edema, Denies lightheadedness and Denies dyspnea Resp Denies dyspnea GI Denies abdominal pain, Denies nausea and Denies vomiting Reports no additional complaints Musc Reports no additional complaints and Denies abnormal gait Skin/Breast Reports system reviewed and no additional complaints, except as documented Neuro Denies abnormal gait, Denies dizziness, Denies syncope and Denies headache(s) Psych Reports no additional complaints Physical exam (Primary Care) Vital Signs: Last Vital Signs Temp 97.1 F 07/24/25 10:17 Pulse 86 07/24/25 10:17 BP 130/70 07/24/25 10:17 Pulse Ox 95 07/24/25 10:17 Oxygen Delivery Method Room Air 07/24/25 10:17 BMI result Body Mass Index 28.9 Tobacco/Smoking Status: Tobacco use Status Tobacco use date assessed 09/18/24 07/24/25 10:20 Patient Tobacco Use Status Never used Tobacco 07/24/25 10:20 Tobacco use type Cigarette 07/24/25 10:20 e-Cigarette/Vaping Use Never Used 07/24/25 10:20 PHQ-9: PHQ-9 Score PHQ-9: Total score 0 07/24/25 10:50 Depression Screening Interpretation: Negative Thrive Assessment: Date of Thrive Assessment Date Thrive assessed 09/18/24 07/24/25 10:20 Const General: cooperative, healthy appearing, comfortable and no acute distress Orientation/consciousness: patient oriented x3 HENMT Head: Yes normocephalic Ears: hearing grossly normal bilaterally General nose exam: Normal external nose present Eyes General: appearance normal, both eyes and all related structures Conjunctivae: conjunctivae normal Neck Neck: Yes full ROM and Yes no lymphadenopathy Resp Effort & Inspection: normal respiratory effort Auscultation: clear to auscultation bilaterally, no crackles, no rales, no rhonchi and no wheezes Cardio Rate: regular rate Rhythm: regular rhythm Skin General skin exam: no rashes or lesions noted Neuro General: patient oriented x3 Gait exam (Neuro): Normal gait present Extrem General: Yes normal to inspection, Yes full ROM and No edema Psych Affect: normal affect Attitude: cooperative Insight: Good insight present (Psych) Judgement: Good judgement present (Psych) Coding Level of Care Code Est Pt Level 3 (14213) Diagnoses Primary hypertension I10 Hypertension type: primary hypertension Pure hypercholesterolemia E78.00 Hyperlipidemia type: pure hypercholesterolemia Deep vein thrombosis (DVT) of lower extremity, unspecified chronicity, unspecified laterality, unspecified vein I82.409 Affected thrombotic vein of extremity: unspecified vein of extremity Chronicity: unspecified DVT location: lower extremity Laterality: unspecified laterality Type 2 diabetes mellitus with hyperglycemia, without long-term current use of insulin E11.65 Diabetes mellitus ocean transportation intermediary insulin use: without ocean transportation intermediary use Obesity (BMI 30-39.9) E66.9 Renal insufficiency N28.9 Additional Codes MARY-7 Assessment Billing - MARY-7 Assessment Tool: MARY-7 Assessment 25882 ([id number]) PHQ-9 - 68346 - PHQ-9 Billing: Yes ([id number]) Assessment & Plan Assessment & Plan (1) Hypertension: Code(s): I10 - Essential (primary) hypertension Category: Medical Qualifiers: Hypertension type: primary hypertension Qualified Code(s): I10 - Essential (primary) hypertension Plan: Continue on current blood pressure medication. Avoid salt intake and encourage healthy diet and regular exercise. (2) Hyperlipidemia: Code(s): E78.5 - Hyperlipidemia, unspecified Category: Medical Qualifiers: Hyperlipidemia type: pure hypercholesterolemia Qualified Code(s): E78.00 - Pure hypercholesterolemia, unspecified Plan: Avoid foods that are high in cholesterol such as red meat, fried foods, eggs and baked goods. Triglyceride goal of less than 150 and LDL goal of less than 100. LAst LDL elevated I did discuss the use of statins which was declined. He will continue on Zetia at this time. (3) DVT (deep venous thrombosis): Comment: October 2022 ultrasound February 2023 resolved Code(s): I82.409 - Acute embolism and thrombosis of unspecified deep veins of unspecified lower extremity Category: Medical Qualifiers: Affected thrombotic vein of extremity: unspecified vein of extremity Chronicity: unspecified DVT location: lower extremity Laterality: unspecified laterality Qualified Code(s): I82.409 - Acute embolism and thrombosis of unspecified deep veins of unspecified lower extremity Plan: The patient has a history of blood clots in the lungs and is on anticoagulation. The dose of Eliquis will be reduced from 5 mg to 2.5 mg daily to mitigate renal side effects per Dr. Gonzalez. The patient can split the current 5 mg tablets to achieve the new dose. (4) Type 2 diabetes mellitus with hyperglycemia: Comment: [facility] Code(s): E11.65 - Type 2 diabetes mellitus with hyperglycemia Category: Medical Qualifiers: Diabetes mellitus nursing home insulin use: without nursing home use Qualified Code(s): E11.65 - Type 2 diabetes mellitus with hyperglycemia Plan: Decrease the amount of carbohydrates such as pasta, bread, rice, and potatoes and limit the amount of sweets. Although fruits are generally healthy they should be eaten in moderation as they are still high in sugar. Hemoglobin A1c goal of less than 7%. Last A1c 7% and Metfomin discontinued. Januvia will be started as a replacement for metformin. The patient was advised to report any issues with insurance coverage, high copay, or side effects. A follow-up visit is scheduled in three months to recheck the A1c. (5) Obesity (BMI 30-39.9): Code(s): E66.9 - Obesity, unspecified Category: Medical Plan: Healthy diet and regular exercise is encouraged. (6) Renal insufficiency: Code(s): N28.9 - Disorder of kidney and ureter, unspecified Category: Medical Plan: Recent lab work and a urine test indicate worsening kidney function and increased renal stress. To protect the kidneys, metformin will be discontinued and the dose of Eliquis will be reduced. The patient was strongly advised to increase daily water intake to at least four to five bottles to help kidney function. Plan This note was constructed using voice recognition software. While every effort has been made to ensure accuracy and vascular specialists, still areas may have been included sometimes these areas may affect the content or meeting of the given symptoms. Total time spent caring for the patient today was 20 minutes. This includes time spent before the visit reviewing the chart, time spent during the visit, and time spent after the visit and documentation. Patient was informed and verbally consented to the use of an ambient scribe for clinic note documentation during this visit. Medications: New sitagliptin phosphate 25 mg PO DAILY 90 tabs 0RF Refilled lisinopril 20 mg PO DAILY 90 tabs 4RF E11.65 - Type 2 diabetes mellitus with hyperglycemia Discontinued metformin Discontinued Reason: Patient no longer taking 500 mg PO DAILY 90 tabs 0RF E11.9 - Type 2 diabetes mellitus without complications
--- OUTSIDE RECORDS SUMMARY | 2025-07-24 12:26 | XMS_ITS | Patient Health Record ---
Author Organization [facility] Address [address] [place] [id number] Care Team Providers Care Pediatric Clinical Nurse Specialist Name Role Phone Hong Erazo Jr [phone] Reason For Referral No Information Plan Of Treatment No Information
== END 2025-07-24 11:05 | disposition home or self-care (01) ==
LOC: HO.HMCH 10:11
PROVIDERS: PCP Internal Medicine
DX: E11.65 Type 2 diabetes mellitus with hyperglycemia (principal); I82.409 Acute embolism and thrombosis of unspecified deep veins of unspecified lower extremity; E66.9 Obesity, unspecified; Z68.28 Body mass index [BMI] 28.0-28.9, adult; I10 Essential (primary) hypertension; E78.00 Pure hypercholesterolemia, unspecified; N28.9 Disorder of kidney and ureter, unspecified

== ENCOUNTER → 2025-07-24 10:11 | Outpatient (BNVA) | payer MEDICARE, SELFPAY | PROVIDERS: PCP Internal Medicine | DX: E11.65 Type 2 diabetes mellitus with hyperglycemia (principal); I10 Essential (primary) hypertension; E78.00 Pure hypercholesterolemia, unspecified; I82.409 Acute embolism and thrombosis of unspecified deep veins of unspecified lower extremity; E66.9 Obesity, unspecified; N28.9 Disorder of kidney and ureter, unspecified; Z79.84 Long term (current) use of oral hypoglycemic drugs; Z68.28 Body mass index [BMI] 28.0-28.9, adult | CPT/HCPCS: 96127; 99212 ==